=== PATIENT | female | born 2000 | race Caucasian/White ===

== ENCOUNTER 2021-04-05 18:48 | Emergency (ER) | payer SELFPAY ==
--- NOTE | 2021-04-05 19:31 | ER ---
Nurse's Notes [facility] Name: Jael Henry Age: 20 yrs Sex: Female : 2000 Arrival Date: 04/05/2021 Time: 18:51 Bed 12 Private MD: Diagnosis: Rash and other nonspecific skin eruption Presentation: 04/05 19:02 Chief complaint: Patient states: Itchy rash to hands, arms, torso x 1 month, states, " ph I moved into a new apartment and slept on the floor for a few days. I talked to my Aunt and she said it's probably scabies." Rash noted to bilateral hands and arms. Coronavirus screen: At this time, the client does not indicate any symptoms associated with coronavirus-19. Ebola Screen: No symptoms or risks identified at this time. Initial Sepsis Screen: Does the patient meet any 2 criteria? No. Patient's initial sepsis screen is negative. Does the patient have a suspected source of infection? No. Patient's initial sepsis screen is negative. Risk Assessment: Do you want to hurt yourself or someone else? Patient reports no desire to harm self or others. Onset of symptoms was April 05, 2021. 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 - Social history:: Smoking status: unknown. Screenin:05 Abuse screen: Denies threats or abuse. Denies injuries from another. Nutritional ph screening: No deficits noted. Tuberculosis screening: No symptoms or risk factors identified. Fall Risk None identified. Assessment: 19:05 General: Appears in no apparent distress. uncomfortable, Behavior is cooperative, ph appropriate for age. Pain: Denies pain. Neuro: Level of Consciousness is awake, alert, obeys commands, Oriented to person, place, time, situation. Cardiovascular: No deficits noted. Derm: Skin is healthy with good turgor, Skin is pink, warm \\T\\ dry. Rash noted that is itchy, red, on back, buttocks, chest, abdomen, right hand, left hand, right arm and left arm. 19:40 Reassessment: Patient is alert, oriented x 3, equal unlabored respirations, skin bb warm/dry/pink. pt verbalized understanding of and agrees to plan of care discharge instructions given pt ambulated with steady gait to exit. Vital Signs: 19:02 BP 141 / 99; Pulse 89; Resp 18; Temp 97.7; Pulse Ox 100% on R/A; ph ED Course: 18:51 Patient arrived in ED. mr 19:05 Triage completed. ph 19:05 Arm band placed on. ph 19:05 Patient has correct armband on for positive identification. Bed in low position. ph 19:18 Juan Stephens, DRUM STOCK CLERK is PHCP. pm1 19:18 Farhan Lopez MD is Attending Physician. pm1 19:41 No provider procedures requiring assistance completed. Patient did not have IV access bb during this emergency room visit. Administered Medications: No medications were administered Outcome: 19:31 Discharge ordered by MD. pm1 19:42 Discharged to home ambulatory. bb 19:42 Condition: stable 19:42 Discharge instructions given to patient, Instructed on discharge instructions, follow up and referral plans. medication usage, Demonstrated understanding of instructions, follow-up care, medications, Prescriptions given X 1. 19:42 Patient left the ED. bb Signatures: Omaira Lamas mr Marlene Fernandez RN RN bb Courtney Armendariz RN RN Juan Stephens, CLARICE DRUM STOCK CLERK pm1
--- NOTE | 2021-04-05 19:31 | EDPHYS ---
Physician Documentation [facility] Name: Jael Henry Age: 20 yrs Sex: Female : 2000 Arrival Date: 04/05/2021 Time: 18:51 Bed 12 Private MD: ED Physician Farhan Lopez HPI: 04/05 19:30 This 20 yrs old Female presents to ER via Ambulatory with complaints of Rash. pm1 19:30 The patient's rash thought to be caused by possibly from scabies. The rash is located pm1 on the chest, abdomen, right arm, left arm and right leg. The rash can be described as raised. Onset: The symptoms/episode began/occurred 3 day(s) ago. Associated signs and symptoms: Pertinent positives: itching. Severity of symptoms: in the emergency department the symptoms are worse. Treatment given at home: None. The patient has not experienced similar symptoms in the past. The patient has not recently seen a physician. Patient's aunt with similar symptoms and her aunt believes that it is scabies. 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 - Social history:: Smoking status: unknown. ROS: 19:30 Constitutional: Negative for fever, chills, and weight loss, Cardiovascular: Negative pm1 for chest pain, palpitations, and edema, Respiratory: Negative for shortness of breath, cough, wheezing, and pleuritic chest pain, MS/Extremity: Negative for injury and deformity. 19:30 Skin: Positive for rash, of the chest, abdomen, right arm and left arm. 19:30 All other systems are negative. Exam: 19:30 Constitutional: This is a well developed, well nourished patient who is awake, alert, pm1 and in no acute distress. Head/Face: Normocephalic, atraumatic. 19:30 Cardiovascular: Exam negative for acute changes, Rate: normal, Rhythm: regular, Pulses: no pulse deficits are appreciated. 19:30 Respiratory: Exam negative for acute changes, respiratory distress, shortness of breath. 19:30 Skin: Appearance: normal except for affected area, consistent with scabies, on the right arm and left arm and present to webbing of left and right hand. 19:30 Neuro: Exam negative for acute changes, Orientation: is normal, Mentation: is normal, Motor: is normal, moves all fours. Vital Signs: 19:02 BP 141 / 99; Pulse 89; Resp 18; Temp 97.7; Pulse Ox 100% on R/A; ph MDM: 19:18 Patient medically screened. pm1 19:30 Data reviewed: vital signs. Data interpreted: Pulse oximetry: on room air is 100 %. pm1 Interpretation: normal. Counseling: I had a detailed discussion with the patient and/or guardian regarding: the historical points, exam findings, and any diagnostic results supporting the discharge/admit diagnosis, the need for outpatient follow up, a family practitioner, to return to the emergency department if symptoms worsen or persist or if there are any questions or concerns that arise at home. Administered Medications: No medications were administered Disposition: 04/06 19:26 Co-signature as Attending Physician, Farhan Lopez MD I agree with the assessment and kdr plan of care. Disposition Summary: 04/05/21 19:31 Discharge Ordered Location: Home pm1 Problem: new pm1 Symptoms: have improved pm1 Condition: Stable pm1 Diagnosis - Rash and other nonspecific skin eruption pm1 Followup: pm1 - With: Emergency Department - When: As needed - Reason: Worsening of condition Followup: pm1 - With: Private Physician - When: 2 - 3 days - Reason: Recheck today's complaints, Continuance of care, Re-evaluation by your physician Discharge Instructions: - Discharge Summary Sheet pm1 - Rash, Adult pm1 - Scabies, Adult pm1 Forms: - Medication Reconciliation Form pm1 - Thank You Letter pm1 - Antibiotic Education pm1 - Prescription Opioid Use pm1 Prescriptions: - Elimite 5 % Topical Cream - apply 1 application by TOPICAL route one time Wash after 12 hours.; 60 gram; pm1 Refills: 0, Product Selection Permitted Signatures: Farhan Lopez MD MD [facility] Courtney Armendariz RN RN ph Juan Stephens, CLARICE ASSISTANT PROFESSOR OF FORESTRY pm1
[2021-04-05 19:54] VITALS: BP 141/99; TEMP 97.7; O2SAT 100
== END 2021-04-05 19:42 | disposition home or self-care (01) ==
LOC: ER 18:48
DX: R21 Rash and other nonspecific skin eruption (principal)
CPT/HCPCS: 99282

== ENCOUNTER 2022-02-08 10:34 | Emergency (ER) | payer SELFPAY ==
--- NOTE | 2022-02-08 11:04 | ER ---
Nurse's Notes [facility] Name: Jael Henry Age: 21 yrs Sex: Female : 2000 Arrival Date: 02/08/2022 Time: 10:35 Bed 6 Private MD: Diagnosis: Other specified predominantly sexually transmitted diseases Presentation: 02/08 10:45 Chief complaint: Patient states: she was treated for Gonarrhea 2 months ago and mb9 symptoms went away. Pt states vaginal sores popped up 5 days ago, echevarria when urine drips on the sores, has had a sore throat, and white discharge. Pt states a rash started on her hands last night and spread to her arms, stomach, and back this morning. 10:45 Coronavirus screen: Vaccine status: Patient reports being unvaccinated. Ebola Screen: [facility] No symptoms or risks identified at this time. Initial Sepsis Screen: Does the patient meet any 2 criteria? No. Patient's initial sepsis screen is negative. Does the patient have a suspected source of infection? No. Patient's initial sepsis screen is negative. Risk Assessment: Do you want to hurt yourself or someone else? Patient reports no desire to harm self or others. Onset of symptoms was February 03, 2022. 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 - Social history:: Smoking status: Patient denies any tobacco usage or history of. Patient uses alcohol, only on a social basis. Screenin:[address] [facility] ED Fall Risk Assessment (Adult) History of falling in the last 3 months, 9 including since admission No falls in past 3 months (0 pts) Confusion or Disorientation No (0 pts) Intoxicated or Sedated No (0 pts) Impaired Gait No (0 pts) Mobility Assist Device Used No (0 pt) Altered Elimination No (0 pt) Score/Fall Risk Level 0 - 2 = Low Risk Educated pt \T\ family on fall prevention, incl call for assistance when getting out of bed. Abuse screen: Denies threats or abuse. Nutritional screening: No deficits noted. Tuberculosis screening: No symptoms or risk factors identified. Assessment: 11:15 General: Appears uncomfortable, Behavior is anxious. Pain: Denies pain. Neuro: Level of mb9 Consciousness is awake, alert, obeys commands, Oriented to person, place, time, situation, Appropriate for age. Cardiovascular: Rhythm is regular. Respiratory: Airway is patent. GI: No signs and/or symptoms were reported involving the gastrointestinal system. : Urine is cloudy, Reports discharge, white. EENT: No signs and/or symptoms were reported regarding the EENT system. Derm: Rash noted that is red, raised, on back, abdomen, right hand, left hand, right arm and left arm. Musculoskeletal: Range of motion: intact in all extremities. Vital Signs: 10:45 BP 118 / 86; Pulse 118; Resp 18; Temp 98.8; Pulse Ox 100% ; Weight 83.91 kg; Height 5 mb9 ft. 2 in. (157.48 cm); Pain 0/10; 10:45 Body Mass Index 33.84 (83.91 kg, 157.48 cm) mb9 ED Course: 10:35 Patient arrived in ED. as 10:35 Patient placed. mb9 10:35 Arm band placed on. mb9 10:35 Placed in gown. Bed in low position. Call light in reach. Side rails up X 1. mb9 10:36 Omaira Jimenez, VLEASQUEZ is Primary Nurse. mb9 10:37 Lori Deutsch MD is Attending Physician. sp3 10:50 Assist provider with pelvic exam: Patient tolerated well. mb9 10:56 Triage completed. mb9 11:26 Rpr Sent. mb9 11:26 GC (GONORR/CHLAMYDIA) Probe Sent. mb9 11:28 Patient did not have IV access during this emergency room visit. mb9 Administered Medications: 11:15 Drug: Rocephin (cefTRIAXone) 500 mg Route: IM; Site: right gluteus; mb9 Medication: 11:28 VIS not applicable for this client. mb9 Outcome: 11:04 Discharge ordered by . sp3 11:28 Discharged to home ambulatory. mb9 11:28 Condition: stable 11:28 Discharge instructions given to patient, Instructed on discharge instructions, follow up and referral plans. Demonstrated understanding of instructions, follow-up care, medications, Prescriptions given X 1. 11:28 Patient left the ED. mb9 Signatures: Reyna Villegas Setul, MD MD sp3 Omaira Jimenez RN RN mb9 Corrections: (The following items were deleted from the chart) 10:58 10:56 PMHx: None; mbJennifer mb9
--- NOTE | 2022-02-08 11:04 | EDPHYS ---
Physician Documentation [facility] Name: Jael Henry Age: 21 yrs Sex: Female : 2000 Arrival Date: 02/08/2022 Time: 10:35 Bed 6 Private MD: ED Physician Lori Deutsch HPI: 02/08 10:56 This 21 yrs old Female presents to ER via Unassigned with complaints of Vaginal Pain. sp3 10:56 21-year-old female with a history of gonorrhea diagnosed approximately 1 month ago here sp3 in this emergency department presents for recurring symptoms of vaginal thick discharge, rash extending into the internal and external labia and general groin skin area patient also states that she has a new rash that is body wide on her upper extremities and back. Lesions are not painful she is concerned about having a new sexual partner which is different than the one from 1 month ago. She denies any other systemic problems including fever, chest pain, shortness of breath, abdominal pain, nausea, vomiting, diarrhea. LMP was approximately 2 weeks ago. It has not been tested for HIV or other hepatitis markers. She declines those tests at this time.. 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 - Social history:: Smoking status: Patient denies any tobacco usage or history of. Patient uses alcohol, only on a social basis. ROS: 10:58 Constitutional: Negative for fever, chills, and weight loss, Eyes: Negative for injury, sp3 pain, redness, and discharge, ENT: Negative for injury, pain, and discharge, Neck: Negative for injury, pain, and swelling, Cardiovascular: Negative for chest pain, palpitations, and edema, Respiratory: Negative for shortness of breath, cough, wheezing, and pleuritic chest pain, Abdomen/GI: Negative for abdominal pain, nausea, vomiting, diarrhea, and constipation, MS/Extremity: Negative for injury and deformity, Neuro: Negative for headache, weakness, numbness, tingling, and seizure, Psych: Negative for depression, anxiety, suicide ideation, homicidal ideation, and hallucinations, Allergy/Immunology: Negative for hives, rash, and allergies, Endocrine: Negative for neck swelling, polydipsia, polyuria, polyphagia, and marked weight changes. 10:58 All other systems are negative. Exam: 10:58 Constitutional: This is a well developed, well nourished patient who is awake, alert, sp3 and in no acute distress. Head/Face: Normocephalic, atraumatic. Neck: Trachea midline, no thyromegaly or masses palpated, and no cervical lymphadenopathy. Supple, full range of motion without nuchal rigidity, or vertebral point tenderness. No Meningismus. Chest/axilla: Normal chest wall appearance and motion. Nontender with no deformity. No lesions are appreciated. Cardiovascular: Regular rate and rhythm with a normal S1 and S2. No gallops, murmurs, or rubs. Normal PMI, no JVD. No pulse deficits. Respiratory: Lungs have equal breath sounds bilaterally, clear to auscultation and percussion. No rales, rhonchi or wheezes noted. No increased work of breathing, no retractions or nasal flaring. Abdomen/GI: Soft, non-tender, with normal bowel sounds. No distension or tympany. No guarding or rebound. No evidence of tenderness throughout. MS/ Extremity: Pulses equal, no cyanosis. Neurovascular intact. Full, normal range of motion. Neuro: Awake and alert, GCS 15, oriented to person, place, time, and situation. Cranial nerves II-XII grossly intact. Motor strength 5/5 in all extremities. Sensory grossly intact. Cerebellar exam normal. Normal gait. 10:58 : exam demonstrates positive vaginal discharge and generalized rash in the groin area and a painless lesion on the left outer labia. No lower abdominal pain is noted.. 10:58 Skin: Generalized maculopapular rash the upper extremities dorsal surfaces and back with a total of less than 5% body surface area. Patient does not have any pruritus or pain with the rash. She does states she had a mild sore throat several days ago but is resolved. No skin sloughing noted. Nikolsky sign is negative.. Vital Signs: 10:45 BP 118 / 86; Pulse 118; Resp 18; Temp 98.8; Pulse Ox 100% ; Weight 83.91 kg; Height 5 mb9 ft. 2 in. (157.48 cm); Pain 0/10; 10:45 Body Mass Index 33.84 (83.91 kg, 157.48 cm) mb9 MDM: 10:41 Patient medically screened. sp3 11:00 Data reviewed: vital signs, nurses notes, lab test result(s). ED course: We will go sp3 ahead and cover GC and chlamydia with IM Rocephin 500 mg and discharge patient home on 2 weeks of doxycycline. RPR is also been sent. I do not believe clinically patient has herpes. Patient again declined HIV and hepatitis testing despite my attempts to convince her to do so. 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 02/08 10:55 Order name: GC (GONORR/CHLAMYDIA) Probe sp3 02/08 10:55 Order name: Rpr sp3 02/08 10:55 Order name: Urine Dipstick-Ancillary (obtain specimen); Complete Time: 11:10 sp3 02/08 11:13 Order name: Urine Dipstick-Ancillary EDOK 02/08 11:16 Order name: Urine --Ancillary (enter results) 02/08 10:55 Order name: Urine Test (obtain specimen); Complete Time: 11:10 sp3 Administered Medications: 11:15 Drug: Rocephin (cefTRIAXone) 500 mg Route: IM; Site: right gluteus; mb9 Disposition Summary: 02/08/22 11:04 Discharge Ordered Location: Home sp3 Condition: Stable sp3 Diagnosis - Other specified predominantly sexually transmitted diseases sp3 Followup: sp3 - With: Private Physician - When: Upon discharge from the Emergency Department - Reason: Continuance of care Discharge Instructions: - Discharge Summary Sheet sp3 - Preventing Sexually Transmitted Infections, Adult sp3 Forms: - Medication Reconciliation Form sp3 - Thank You Letter sp3 - Antibiotic Education sp3 - Prescription Opioid Use sp3 Prescriptions: - Doxycycline Hyclate 100 mg Oral Tablet - take 1 tablet by ORAL route every 12 hours; 28 tablet; Refills: 0, Product sp3 Selection Permitted Signatures: Dispatcher [employer] Lori Staley MD MD sp3 Omaira Jimenez RN RN mb9 Corrections: (The following items were deleted from the chart) 10:58 10:56 PMHx: None; mb9 mb9
[2022-02-08 11:13] LABS: Urine Blood Negative (Negative); Urine Glucose Negative (Negative); Urine Protein 1+ (Negative); Urine Specific Gravity 1.025 (1.005-1.030)
[2022-02-08] MEDS ORDERED: CEFTRIAXONE 500 MG/VIAL ONE (11:16)
[2022-02-08] MEDS ORDERED: LIDOCAINE 1% MPF 2 ML AMPULE ONE (11:16)
[2022-02-08 11:33] VITALS: BP 118/86; TEMP 98.8; O2SAT 100
[2022-02-08 13:01] LABS: Urine Specific Gravity/Preg 1.025 (1.005-1.030)
[2022-02-08 20:05] LABS: RPR (Rapid Plasma Reagin) NON-REACT (NON-REACT)
== END 2022-02-08 11:28 | disposition home or self-care (01) ==
LOC: ER 10:34
DX: A63.8 Other specified predominantly sexually transmitted diseases (principal)
CPT/HCPCS: 36415; 81003; 81025; 86592; 87490; 87590; 96372; 99284; J0696

== ENCOUNTER 2024-06-14 09:15 | Emergency (ER) | payer SELFPAY ==
--- OUTSIDE RECORDS SUMMARY | 2024-06-14 09:23 | XMS REPORT | Continuity of Care Document ---
Author Name Unknown Address [address] [place] [address] Organization [facility] Address [address] [place] [address] Care Team Providers Care Gift Officer Name Role Phone IZABELA SOLIMAN Primary Care Physician Unav ailable HANNAH NICK Attending Clinician Unavailable Hannah Conde Attending Clinician [phone] Izabela Manrique Attending Clinician + MARLENE ANGELES Attending Clinician UnavailMarlene Bansal CNM Attending Clinician [phone] NABILA VÁZQUEZ Attending Clinician Unavailable NABILA VÁZQUEZ Attending Clinician Unavailable NABILA VÁZQUEZ Attending Clinician Unavailable Nabila Vázquez MD Attending Clinician [phone] Carisa Lakhani MD Attending Clinician [phone] Vandana Espitia MD Attending Clinician [phone] ALEXANDER JANSEN Attending Clinician Unavailable IZABELA SOLIMAN Attending Clinician Unavail able Izabela Manrique Attending Clinician + Ultrasound, Roderick-Mfscarlett Attending Clinician UnavailMarlene Bansal CNM Attending Clinician [phone] LA ROSAS Attending Clinician Unavailable LA ROSAS Attending Clinician Unavailable La Rosas MD Attending Clinician [phone] Lab, JossieRmp Attending Clinician Unavailable Doctor Unassigned, [place] Attending Clinician U steven Gates MD, Marilynn Richard Attending Clinici an Aditya DÍAZ, North Attending Clinician + MINAL AMIN Attending Clinician Unav ailable 2, [facility] Attending Clinician Unavailab monroe Brown MD, Lawson Attending Clinician + FEMI HOGAN Attending Clinician Unavailable FEMI HOGAN Attending Clinician Unavailable 3, [facility] Room Attending Clinician Unavaila Emeka Reyes MD Attending Clinician [phone] EMEKA CHAVIRA Attending Clinician Unavailable EMEKA CHAVIRA Attending Clinician Unavailable Risk, Hsw-Vjafk-Ym/High Attending Clinician Unav ailable Chelle Bobo Attending Clinician CHELLE SINGH Attending Clinician Unavailable NABILA VÁZQUEZ Admitting Clinician Unavailable Nabila Vázquez MD Admitting Clinician [phone] LA ROSAS Admitting Clinician Unavailable La Rosas MD Admitting Clinician [phone] Payers Payer Name Policy Type Policy Number Effective Date Expirati on Date Source [facility] [id number] 2022 00:00:00 [employer] [place] [id number] 2022 00:00:00 Problems Condition Name Condition Details Condition Category Status Onset Date Resolution Date Last Treatment Date Treating Clinician Comments Source Acute blood loss anemia Acute blood loss anemia Disease Active 2023-02 0 00:00: 00 [facility] Indication for care in labor or delivery-I OL Indication for care in labor or delivery-I OL Disease Active 2023-02 0- 00:00: 00 [facility] Morbid obesity with body mass index of 40.0-49.9 Morbid obesity with body mass index of 40.0-49.9 Disease Active 2022-02 0-05 00:00: 00 [facility] Obesity in Obesity in Disease Active 2022-02 0-05 00:00: 00 [facility] Anemia of mother in , antepartum Anemia of mother in , antepartum Disease Active 9-18 00:00: 00 [facility] LGSIL on Pap smear of cervix LGSIL on Pap smear of cervix Disease Active 4-04 00:00: 00 Overview: Formattin g of this note might be different from the original. Will need follow up pap in 1 year: 05/2023 [facility] History of seizure History of seizure Disease Active 05-18 00:00: 00 Overview: Formattin g of this note might be different from the original. Pt reports to age 1 [facility] Anxiety and depression Anxiety and depression Disease Active 05-18 00:00: 00 Overview: Formattin g of this note might be different from the original. Reports history, never been on meds [facility] History of seizure History of seizure Disease Active 05-18 00:00: 00 Overview: Formattin g of this note might be different from the original. Pt reports to age 1 [facility] Perineal laceration , second degree, delivered Perineal laceration , second degree, delivered Disease Resolve d 2023-1 0-29 00:00: 00 2024-01-11 00:00:00 2024-01-11 10:44:23 [facility] Single live Single live Disease Resolve d 2023-1 0-29 00:00: 00 2024-01-11 00:00:00 2024-01-11 10:44:21 [facility] 39 weeks gestation of 39 weeks gestation of Disease Resolve d 2023-1 0-28 00:00: 00 2024-01-11 00:00:00 2024-01-11 10:44:27 [facility] (normal spontaneou s vaginal delivery) (normal spontaneou s vaginal delivery) Disease Resolve d 2023-1 0-28 00:00: 00 2024-01-11 00:00:00 2024-01-11 10:44:24 [facility] Anemia of mother in , antepartum Anemia of mother in , antepartum Disease Resolve d 2023-1 0-15 00:00: 00 2024-01-11 00:00:00 2024-01-11 10:44:28 [facility] Glucose tolerance test abnormal Glucose tolerance test abnormal Disease Resolve d 2023- 3-21 00:00: 00 2024-01-11 00:00:00 2024-01-11 10:44:37 Overview: Formattin g of this note might be different from the original. Passed early 3hr gtt [facility] Multiparit y Multiparit y Disease Resolve d 3-20 00:00: 00 2024-01-11 00:00:00 2024-01-11 10:44:32 [facility] Positive GBS test Positive GBS test Disease Resolve d 9-18 00:00: 00 2024-01-11 00:00:00 2024-01-11 10:44:34 Overview: Formattin g of this note might be different from the original. Address intrapart um [facility] Short interval between pregnancie s affecting , antepartum Short interval between pregnancie s affecting , antepartum Disease Resolve d 3-21 00:00: 00 2023-12-21 00:00:00 2023-12-21 05:19:41 [facility] Supervisio n of high risk , antepartum Supervisio n of high risk , antepartum Disease Resolve d 3-20 00:00: 00 2023-12-21 00:00:00 2023-12-21 05:19:37 [facility] Other general counseling and advice for contracept kailee management Other general counseling and advice for contracept kailee management Disease Resolve d 2022-02 1-27 00:00: 00 2023-05-12 00:00:00 2023-05-12 09:26:39 [facility] Anemia, Anemia, Disease Resolve d 2022-02 0-08 00:00: 00 2023-05-12 00:00:00 2023-05-12 09:27:53 [facility] Routine follow-up Routine follow-up Disease Resolve d 2022-02 0-30 00:00: 00 2023-01-18 00:00:00 2023-01-18 11:57:36 [facility] (spontaneo us vaginal delivery) (spontaneo us vaginal delivery) Disease Resolve d 2022-02 0-07 00:00: 00 2022-12-21 00:00:00 2022-12-21 09:41:08 [facility] Single live Single live Disease Resolve d 2022-02 0-07 00:00: 00 2022-12-21 00:00:00 2022-12-21 09:41:07 [facility] Obstetrica l laceration Obstetrica l laceration Disease Resolve d 2022-02 0-07 00:00: 00 2022-12-21 00:00:00 2022-12-21 09:41:18 [facility] 39 weeks gestation of 39 weeks gestation of Disease Resolve d 2022-02 0-05 00:00: 00 2022-12-21 00:00:00 2022-12-21 09:41:10 [facility] Anemia of mother in , antepartum Anemia of mother in , antepartum Disease Resolve d 0 9-18 00:00: 00 2022-12-21 00:00:00 2022-12-21 09:41:12 [facility] Obesity in Obesity in Disease Resolve d 6-29 00:00: 00 2022-12-21 00:00:00 2022-12-21 09:41:14 [facility] GBS (group B streptococ cus) UTI complicati ng GBS (group B streptococ cus) UTI complicati ng Disease Resolve d 0 3-29 00:00: 00 2022-12-21 00:00:00 2022-12-21 09:41:19 Overview: Formattin g of this note might be different from the original. neg conrado [facility] Supervisio n of high-risk Supervisio n of high-risk Disease Resolve d 2022-0 3-27 00:00: 00 2022-12-21 00:00:00 2022-12-21 09:41:17 [facility] Polyhydram nios, antepartum complicati on Polyhydram nios, antepartum complicati on Disease Resolve d 8-04 00:00: 00 2022-11-26 00:00:00 2022-11-26 16:46:59 Overview: Formattin g of this note might be different from the original. consisten t with mild polyhydra mnios. See last usg report [facility] Chlamydia infection during Chlamydia infection during Disease Resolve d 3-29 00:00: 00 2022-11-26 00:00:00 2022-11-26 16:47:00 [facility] Family history of brain aneurysm Family history of brain aneurysm Disease Resolve d 3-27 00:00: 00 2022-11-26 00:00:00 2022-11-26 16:47:08 Overview: Formattin g of this note might be different from the original. Reports his of brain aneurysm at , resolved [facility] Allergies, Adverse Reactions, Alerts Allergy Name Allergy Type Status Severity Reaction(s) Onset Date Inactive Date Treating Clinician Comments Source NO KNOWN ALLERGIE S Drug Class Active [facility] Social History Social Habit Start Date Stop Date Quantity Comments Source ASSERTION 2023-04-05 00:00:00 [facility] Alcoholic beverage intake 2024-02-01 00:00:00 2024-02-01 00:00:00 Ex-drinker (finding) [facility] Alcohol intake 2023-06-09 00:00:00 2023-06-09 00:00:00 Ex-drinker (finding) [facility] History of Social function 2023-05-12 00:00:00 2023-05-12 00:00:00 [facility] Exposure to SARS-CoV-2 (event) 2022-06-15 00:00:00 2022-06-25 09:01:[address] [facility] Tobacco use and exposure 2022-05-18 00:00:00 2022-05-18 00:00:00 Smokeless tobacco non-user [facility] Sex assigned at 2000 00:00:00 2000 00:00:00 [facility] Smoking Status Start Date Stop Date Source Tobacco smoking consumption unknown [facility] Never smoked tobacco [facility] Medications Ordered Medication Name Filled Medication Name Start Date Stop Date Current Medication? Ordering Clinician Indication Dosage Frequency Signature (SIG) Comments Components Source metroNIDAZO LE 500 mg tablet 2023-02 00:00: 00 Yes [id number] 500mg Take 1 tablet by mouth every 12 (twelve) hours. [facility] norgestimat e-ethinyl estradioL 0.25-35 mg-mcg per tablet 2023-02 00:00: 00 Yes [id number] 1{tbl} Take 1 tablet by mouth in the morning. [facility] Nitrofurant oin&Nit. Macrocryst (MACROBID) 100 mg capsule 2023-02 00:00: 00 01-24 05:59 :00 No [id number] 100mg Take 1 capsule by mouth in the morning and 1 capsule in the evening. Do all this for 10 days. [facility] jts130-ccki fum-folic () 27 mg iron- 1 mg folic tablet 2023-02 00:00: 00 Yes [id number] 1{tbl} Take 1 tablet by mouth in the morning. [facility] docusate 100 mg capsule 2023-02 00:00: 00 Yes [id number] 200mg Take 2 capsules by mouth once daily as needed for Constipati on. [facility] ferrous sulfate 325 mg (65 mg iron) tablet 2023-02 00:00: 00 Yes [id number] 325mg Take 1 tablet by mouth in the morning. [facility] ibuprofen 800 mg tablet 2023-02 00:00: 00 Yes [id number] 800mg Take 1 tablet by mouth every 8 (eight) hours as needed (pain). Take with food or milk. [facility] acetaminoph en (TYLENOL) 160 mg/5 mL oral liquid 650 mg 2023-02 14:48: 42 12-21 20:27 :50 No 650mg 650 mg, Oral, Q4HPRN, Starting on Wed12/21/23 at 0948, Until Wed12/22/23 at 1527, Routine, Pain (scale 1-3) [facility] ibuprofen (ADVIL CHILDREN'S) 100 mg/5 mL oral suspension 600 mg 2023-02 14:47: 43 12-21 20:27 :50 No 600mg 600 mg, Oral, Q6HPRN, Starting on Wed12/21/23 at 0947, Until Wed12/22/23 at 1527, Routine, Pain (scale 4-6) [facility] rho(D) immune globulin (RHOPHYLAC) injection 300 mcg 2023-02 13:47: 12 12-21 20:27 :49 No 300ug [facility] human papillomav vac,9-ksenia(P F) (GARDASIL-9 ) syringe 0.5 mL 2023-02 13:47: 05 12-21 20:27 :50 No .5mL [facility] HYDROcodone -acetaminop hen (NORCO 5) tablet 1 tablet 2023-02 13:47: 05 12-21 20:27 :50 No 1{tbl} [facility] diphenhydrA MINE (BENADRYL) tablet 25 mg 2023-02 13:47: 05 12-21 20:27 :50 No 25mg [facility] ondansetron (ZOFRAN (PF)) injection 4 mg 2023-02 13:47: 05 12-21 20:27 :50 No 4mg [facility] simethicone (GAS RELIEF (SIMETHICON E)) chewable tablet 160 mg 2023-02 13:47: 05 12-21 20:27 :49 No 160mg [facility] docusate (COLACE) capsule 200 mg 2023-02 13:47: 05 12-21 20:27 :49 No 200mg [facility] magnesium hydroxide (MILK OF MAGNESIA) 400 mg/5 mL suspension 30 mL 2023-02 13:47: 05 12-21 20:27 :49 No 30mL [facility] benzocaine- menthol (DERMOPLAST ) 20-0.5 % topical spray 2023-02 13:47: 05 12-21 20:27 :49 No Topical, PRN, Starting on Wed12/21/23 at 0847, Until Wed12/22/23 at 1527, Routine, Perineum discomfort [facility] ropivacaine 0.2 % (NAROPIN (PF)) epidural infusion 2023-02 23:54: 00 12-20 12:22 :37 No Epidural, CONTINUOUS PRN, Starting on Wed12/20/23 at 1854, Until Wed12/21/23 at 0722, Routine, Intra-op [facility] lidocaine-e pinephrine (XYLOCAINE W/EPINEPHRI NE) 1.5 %-1:200,000 injection 2023-02 23:52: 00 12-20 12:22 :37 No Epidural, ONCE INTRA PROCEDURE, Starting on Wed12/20/23 at 1852, Until Wed12/21/23 at 0722, Routine, Intra-op [facility] D5W-LR IV infusion 1,000 mL 2023-02 20:25: 11 12-20 13:47 :11 No 1000mL at 1-75 mL/hr, IV Infusion, TITRATE, Starting on Wed12/20/23 at 1525, Until Wed12/21/23 at 0847, Routine [facility] sodium citrate-cit star acid (BICITRA) 500-334 mg/5 mL solution 30 mL 2023-02 20:25: 11 12-19 23:36 :00 No 30mL 30 mL, Oral, PRE-PROCED URE ONCE, 1 dose, Starting on Wed12/20/23 at 1525, Until Wed12/20/23 at 1836, Routine, Surgery/Pr ocedure [facility] ferrous sulfate 325 mg (65 mg iron) tablet 8-06 00:00: 00 12-21 00:00 :00 No [id number] 325mg Take 1 tablet by mouth in the morning and 1 tablet in the evening. [facility] ascorbic acid, vitamin C, 500 mg tablet 8-06 00:00: 00 12-21 00:00 :00 No [id number] 500mg Take 1 tablet by mouth in the morning and 1 tablet at noon and 1 tablet in the evening. [facility] act61-edfl- folic acid 29 mg iron- 1 mg per tablet 3-20 00:00: 00 12-21 00:00 :00 No [id number] 1{tbl} Take 1 tablet by mouth in the morning. [facility] ibuprofen 600 mg tablet 2022-02 0-08 00:00: 00 01-18 00:00 :00 No [id number] 600mg Take 1 tablet by mouth every 6 (six) hours as needed (Pain). Take with food or milk. [facility] Iron Fum & P-FA-Vit B & C No.9 (INTEGRA PLUS) 125 mg iron- 1 mg Cap 2022-02 0-08 00:00: 00 01-18 00:00 :00 No [id number] 1{capsu le} Take 1 capsule by mouth in the morning. [facility] simethicone (GAS RELIEF (SIMETHICON E)) chewable tablet 160 mg 2022-02 0-07 14:00: 00 Yes 160mg 160 mg, Oral, PC+HS, First dose on Wed11/28/22 at 0900, Until Discontinu ed, Routine [facility] ibuprofen (IBU) tablet 600 mg 2022-02 0-07 11:00: 00 12-01 10:59 :00 No 600mg 600 mg, Oral, Q6H, 12 doses, First dose on Wed11/28/22 at 0600, Last dose on Wed12/01/22 at 0000, Routine [facility] acetaminoph en (TYLENOL) tablet 650 mg 2022-02 0-07 07:15: 00 12-01 04:59 :00 No 650mg 650 mg, Oral, Q6H, 12 doses, First dose on 11/28/22 at 0215, Last dose on 11/30/22 at 1800, Routine [facility] rho(D) immune globulin (RHOGAM) syringe 300 mcg 2022-02 0 07:06: 53 Yes 300ug 300 mcg, Intramuscu lar, ONCE, For 1 dose, Conditiona l, Routine [facility] diphenhydrA MINE (BENADRYL) tablet 25 mg 2022-02 0 07:06: 51 Yes 25mg 25 mg, Oral, Q6HPRN, Starting on 11/28/22 at 0206, Until Discontinu ed, Routine, Sleep, Itching [facility] ondansetron (ZOFRAN (PF)) injection 4 mg 2022-02 0 07:06: 51 Yes 4mg 4 mg, Slow IV Push, Q8HPRN, Starting on 11/28/22 at 0206, Until Discontinu ed, Routine, Nausea and Vomiting (N/V) [facility] docusate (COLACE) capsule 200 mg 2022-02 0 07:06: 51 Yes 200mg 200 mg, Oral, QDAILYPRN, Starting on 11/28/22 at 0206, Until Discontinu ed, Routine, Constipati on [facility] magnesium hydroxide (MILK OF MAGNESIA) 400 mg/5 mL suspension 30 mL 2022-02 0 07:06: 51 Yes 30mL 30 mL, Oral, QDAILYPRN, Starting on 11/28/22 at 0206, Until Discontinu ed, Routine, Constipati on [facility] benzocaine- menthol (DERMOPLAST ) 20-0.5 % topical spray 2022-02 0 07:06: 50 Yes Topical, PRN, Starting on 11/28/22 at 0206, Until Discontinu ed, Routine, Perineum discomfort [facility] human papillomav vac,9-ksenia(P F) (GARDASIL-9 ) syringe 0.5 mL 2022-02 0 07:06: 50 Yes .5mL 0.5 mL, Intramuscu lar, ONCE-PRIOR TO DISCHARGE, 1 dose, Starting on 11/28/22 at 0206, Until Discontinu ed, Routine, Give vaccine prior to discharge [facility] ondansetron (ZOFRAN (PF)) injection 4 mg 2022-02 0 02:45: 00 11-28 01:57 :00 No 4mg 4 mg, Slow IV Push, ONCE, On 11/27/22 at 2145, For 1 dose
Do ses of ondansetro n 16 mg and above need to be administer ed via IV piggyback. For Dose >=24mg ECG monitoring is advisable.
[facility] lidocaine-e pinephrine (XYLOCAINE W/EPINEPHRI NE) 1.5 %-1:200,000 injection 2022-02 0 17:25: 00 Yes Intraderma l, ONCE INTRA PROCEDURE, Starting on 11/27/22 at 1225, Until Discontinu ed, Routine, Intra-op [facility] ropivacaine 0.2 % (NAROPIN (PF)) epidural infusion 2022-02 0 17:25: 00 Yes Epidural, CONTINUOUS PRN, Starting on 11/27/22 at 1225, Until Discontinu ed, Routine, Intra-op [facility] oxytocin (PITOCIN) 30 units in NS 500 mL IV infusion 2022-02 0 12:43: 52 11-28 07:07 :00 No 2mU/min at 2-40 mL/hr, IV Infusion, TITRATE, Starting on Wed11/27/22 at 0743, Until 11/28/22 at 0207, LUCRETIA [facility] sodium citrate-cit star acid (BICITRA) 500-334 mg/5 mL solution 30 mL 2022-02 0-05 21:48: 07 11-27 17:06 :00 No 30mL 30 mL, Oral, PRE-PROCED URE ONCE, 1 dose, Starting on Belle 11/26/22 at 1648, Until Discontinu ed, Routine, Surgery/Pr ocedure [facility] lactated ringers IV infusion 500 mL 2022-02 0-05 21:48: 06 11-28 07:07 :09 No 500mL at 999 mL/hr, 500 mL, IV Infusion, PRN - SEE INSTRUCTIO NS, Starting on Belle 11/26/22 at 1648, Until 11/28/22 at 0207, Routine [facility] D5W-LR IV infusion 1,000 mL 2022-02 0-05 21:48: 06 11-28 07:07 :09 No 1000mL at 1-125 mL/hr, IV Infusion, TITRATE, Starting on Belle 11/26/22 at 1648, Until 11/28/22 at 0207, Routine [facility] ascorbic acid, vitamin C, 500 mg tablet 918 00:00: 00 11-29 00:00 :00 No [id number] 500mg Take 1 tablet by mouth in the morning and 1 tablet at noon and 1 tablet in the evening. [facility] PNV 67-iron ps-folate no.1-dha (VITAFOL ULTRA) 29 mg iron- 1 mg-200 mg Cap 4-13 00:00: 00 07-05 04:59 :00 No [id number] 1{tbl} Take 1 tablet by mouth in the morning for 30 days. [facility] azithromyci n 500 mg tablet 05-20 00:00: 00 11-29 00:00 :00 No TAKE 2 TABLETS BY MOUTH 1 TIME NOW FOR 1 DOSE [facility] ampicillin 500 mg capsule 05-20 00:00: 00 05-31 04:59 :00 No [id number] 500mg Take 1 capsule by mouth 4 (four) times daily for 10 days. [facility] Immunizations Ordered Immunization Name Filled Immunization Name Date Status Comments Source TDAP 2023-10-11 00:00:[address] [facility] TDAP 2023-10-11 00:00:[address] [facility] TDAP 2022-09-10 00:00:[address] [facility] TDAP 2022-09-10 00:00:[address] [facility] TDAP 2022-09-10 00:00:[address] [facility] TDAP 2022-09-10 00:00:[address] [facility] TDAP 2022-09-10 00:00:[address] [facility] TDAP 2022-09-10 00:00:[address] [facility] TDAP 2022-09-10 00:00:[address] [facility] TDAP 2022-09-10 00:00:[address] [facility] TDAP 2022-09-10 00:00:[address] [facility] TDAP 2022-09-10 00:00:[address] [facility] TDAP 2022-09-10 00:00:[address] [facility] TDAP 2022-09-10 00:00:[address] [facility] TDAP 2022-09-10 00:00:[address] [facility] TDAP 2022-09-10 00:00:[address] [facility] TDAP 2022-09-10 00:00:[address] [facility] TDAP Unknown Completed [facility] TDAP Unknown Completed [facility] TDAP Unknown Completed [facility] TDAP Unknown Completed [facility] TDAP Unknown [facility] TDAP Unknown [facility] TDAP Unknown [facility] TDAP Unknown [address] TDAP Unknown [address] TDAP Unknown [facility] TDAP Unknown [facility] TDAP Unknown [facility] TDAP Unknown Com[facility] TDAP Unknown [facility] TDAP Unknown Com[facility] TDAP Unknown [facility] TDAP Unknown [facility] TDAP Unknown Com[facility] TDAP Unknown Com[facility] TDAP Unknown Com[facility] TDAP Unknown Com[facility] TDAP Unknown Com[facility] TDAP Unknown Completed [facility] TDAP Unknown Completed [facility] TDAP Unknown Completed [facility] TDAP Unknown Completed [facility] TDAP Unknown Completed [facility] Vital Signs Vital Name Observation Time Observation Value Comments S ource Systolic blood pressure 2024-02-01 16:26:00 128 mm[Hg] [facility] Diastolic blood pressure 2024-02-01 16:26:00 75 mm[Hg] [facility] Heart rate 2024-02-01 16:26:00 108 /min [facility] Body temperature 2024-02-01 16:26:[address] [facility] Respiratory rate 2024-02-01 16:26:00 18 /min [facility] Body height 2024-02-01 16:26:00 152.4 cm [facility] Body weight 2024-02-01 16:26:00 106.686 kg [facility] BMI 2024-02-01 16:26:00 45.93 kg/m2 [facility] Systolic blood pressure 2024-01-11 16:40:00 131 mm[Hg] [facility] Diastolic blood pressure 2024-01-11 16:40:00 86 mm[Hg] [facility] Heart rate 2024-01-11 16:40:00 112 /min [facility] Body temperature 2024-01-11 16:40:[address] [facility] Respiratory rate 2024-01-11 16:40:00 18 /min [facility] Body height 2024-01-11 16:40:00 152.4 cm [facility] Body weight 2024-01-11 16:40:00 106.85 kg [facility] BMI 2024-01-11 16:40:00 46.01 kg/m2 [facility] Systolic blood pressure 2023-12-22 13:49:00 98 mm[Hg] [facility] Diastolic blood pressure 2023-12-22 13:49:00 62 mm[Hg] [facility] Heart rate 2023-12-22 13:49:00 99 /min [facility] Body temperature 2023-12-22 13:49:[address] [facility] Respiratory rate 2023-12-22 13:49:00 18 /min [facility] Oxygen saturation in Arterial blood by Pulse oximetry 2023-12-22 13:49:00 100 /min [facility] Body weight 2023-12-20 20:24:00 116.121 kg [facility] BMI 2023-12-20 20:24:00 48.40 kg/m2 [facility] Body height 2023-12-20 18:30:00 154.9 cm [facility] Systolic blood pressure 2023-12-15 16:04:00 123 mm[Hg] [facility] Diastolic blood pressure 2023-12-15 16:04:00 82 mm[Hg] [facility] Heart rate 2023-12-15 16:04:00 110 /min [facility] Body temperature 2023-12-15 16:04:[address] [facility] Respiratory rate 2023-12-15 16:04:00 17 /min [facility] Body height 2023-12-15 16:04:00 154.9 cm [facility] Body weight 2023-12-15 16:04:00 114.896 kg [facility] BMI 2023-12-15 16:04:00 47.86 kg/m2 [facility] Systolic blood pressure 2023-12-08 14:50:00 119 mm[Hg] [facility] Diastolic blood pressure 2023-12-08 14:50:00 82 mm[Hg] [facility] Heart rate 2023-12-08 14:50:00 109 /min [facility] Body temperature 2023-12-08 14:50:[address] [facility] Respiratory rate 2023-12-08 14:50:00 18 /min [facility] Body height 2023-12-08 14:50:00 154.9 cm [facility] Body weight 2023-12-08 14:50:00 114.443 kg [facility] BMI 2023-12-08 14:50:00 47.67 kg/m2 [facility] Systolic blood pressure 2023-12-02 15:32:00 117 mm[Hg] [facility] Diastolic blood pressure 2023-12-02 15:32:00 71 mm[Hg] [facility] Heart rate 2023-12-02 15:32:00 106 /min [facility] Body temperature 2023-12-02 15:32:[address] [facility] Respiratory rate 2023-12-02 15:32:00 18 /min [facility] Body height 2023-12-02 15:32:00 154.9 cm [facility] 2023-12-02 15:32:00 113.49 kg [facility] BMI 2023-12-02 15:32:00 47.27 kg/m2 [facility] Systolic blood pressure 2023-11-25 15:47:00 113 mm[Hg] [facility] Diastolic blood pressure 2023-11-25 15:47:00 61 mm[Hg] [facility] Heart rate 2023-11-25 15:47:00 112 /min [facility] Body temperature 2023-11-25 15:47:[address] [facility] Respiratory rate 2023-11-25 15:47:00 17 /min [facility] Body height 2023-11-25 15:47:00 154.9 cm [facility] Body weight 2023-11-25 15:47:00 113.127 kg [facility] BMI 2023-11-25 15:47:00 47.12 kg/m2 [facility] Systolic blood pressure 2023-11-10 16:08:00 124 mm[Hg] [facility] Diastolic blood pressure 2023-11-10 16:08:00 76 mm[Hg] [facility] Heart rate 2023-11-10 16:08:00 111 /min [facility] Body temperature 2023-11-10 16:08:[address] [facility] Respiratory rate 2023-11-10 16:08:00 19 /min [facility] Body height 2023-11-10 16:08:00 154.9 cm [facility] Body weight 2023-11-10 16:08:00 113.263 kg [facility] BMI 2023-11-10 16:08:00 47.18 kg/m2 [facility] Systolic blood pressure 2023-10-27 15:31:00 126 mm[Hg] [facility] Diastolic blood pressure 2023-10-27 15:31:00 79 mm[Hg] [facility] Heart rate 2023-10-27 15:31:00 118 /min [facility] Body temperature 2023-10-27 15:31:[address] [facility] Respiratory rate 2023-10-27 15:31:00 19 /min [facility] Body height 2023-10-27 15:31:00 154.9 cm [facility] Body weight 2023-10-27 15:31:00 111.948 kg [facility] BMI 2023-10-27 15:31:00 46.63 kg/m2 [facility] Systolic blood pressure 2023-10-11 15:59:00 105 mm[Hg] [facility] Diastolic blood pressure 2023-10-11 15:59:00 64 mm[Hg] [facility] Heart rate 2023-10-11 15:59:00 100 /min [facility] Body temperature 2023-10-11 15:59:[address] [facility] Respiratory rate 2023-10-11 15:59:00 18 /min [facility] Body height 2023-10-11 15:59:00 154.9 cm [facility] Body weight 2023-10-11 15:59:00 111.766 kg [facility] BMI 2023-10-11 15:59:00 46.56 kg/m2 [facility] Systolic blood pressure 2023-09-27 12:47:00 109 mm[Hg] [facility] Diastolic blood pressure 2023-09-27 12:47:00 68 mm[Hg] [facility] Heart rate 2023-09-27 12:47:00 99 /min [facility] Body temperature 2023-09-27 12:47:[address] [facility] Respiratory rate 2023-09-27 12:47:00 18 /min [facility] Body height 2023-09-27 12:47:00 154.9 cm [facility] Body weight 2023-09-27 12:47:00 110.904 kg [facility] BMI 2023-09-27 12:47:00 46.20 kg/m2 [facility] Systolic blood pressure 2023-09-13 21:07:00 134 mm[Hg] [facility] Diastolic blood pressure 2023-09-13 21:07:00 74 mm[Hg] [facility] Heart rate 2023-09-13 21:07:00 104 [facility] Body temperature 2023-09-13 21:07:[address] [facility] Respiratory rate 2023-09-13 21:07:00 18 /min [facility] Body height 2023-09-13 21:07:00 154.9 cm [facility] Body weight 2023-09-13 21:07:00 110.315 kg [facility] BMI 2023-09-13 21:07:00 45.95 kg/m2 [facility] Systolic blood pressure 2023-08-04 13:06:00 115 mm[Hg] [facility] Diastolic blood pressure 2023-08-04 13:06:00 64 mm[Hg] [facility] Heart rate 2023-08-04 13:06:00 94 /min [facility] Body temperature 2023-08-04 13:06:[address] [facility] Respiratory rate 2023-08-04 13:06:00 18 /min [facility] Body height 2023-08-04 13:06:00 154.9 cm [facility] Body weight 2023-08-04 13:06:00 108.092 kg [facility] BMI 2023-08-04 13:06:00 45.03 kg/m2 [facility] Systolic blood pressure 2023 13:11:00 133 mm[Hg] [facility] Diastolic blood pressure 2023 13:11:00 73 mm[Hg] [facility] Heart rate 2023 13:11:00 101 /min [facility] Body temperature 2023 13:11:[address] [facility] Respiratory rate 2023 13:11:00 20 /min [facility] Body height 2023 13:11:00 154.9 cm [facility] Body weight 2023 13:11:00 105.371 kg [facility] BMI 2023 13:11:00 43.89 kg/m2 [facility] Oxygen saturation in Arterial blood by Pulse oximetry 2023 13:11:00 99 /min [facility] Systolic blood pressure 2023-06-09 13:19:00 113 mm[Hg] [facility] Diastolic blood pressure 2023-06-09 13:19:00 66 mm[Hg] [facility] Heart rate 2023-06-09 13:19:00 98 /min [facility] Body temperature 2023-06-09 13:19:[address] [facility] Respiratory rate 2023-06-09 13:19:00 18 /min [facility] Body height 2023-06-09 13:19:00 154.9 cm [facility] Body weight 2023-06-09 13:19:00 105.053 kg [facility] BMI 2023-06-09 13:19:00 43.76 kg/m2 [facility] Systolic blood pressure 2023-05-12 13:42:00 126 mm[Hg] [facility] Diastolic blood pressure 2023-05-12 13:42:00 74 mm[Hg] [facility] Heart rate 2023-05-12 13:42:00 99 /min [facility] Body temperature 2023-05-12 13:42:[address] [facility] Respiratory rate 2023-05-12 13:42:00 18 /min [facility] Body height 2023-05-12 13:42:00 154.9 cm [facility] Body weight 2023-05-12 13:42:00 107.321 kg [facility] BMI 2023-05-12 13:42:00 44.71 kg/m2 [facility] Systolic blood pressure 2023-01-18 16:12:00 119 mm[Hg] [facility] Diastolic blood pressure 2023-01-18 16:12:00 76 mm[Hg] [facility] Heart rate 2023-01-18 16:12:00 89 /min [facility] Body temperature 2023-01-18 16:12:[address] [facility] Respiratory rate 2023-01-18 16:12:00 18 /min [facility] Body height 2023-01-18 16:12:00 154.9 cm [facility] Body weight 2023-01-18 16:12:00 100.517 kg [facility] BMI 2023-01-18 16:12:00 41.87 kg/m2 [facility] Systolic blood pressure 2022-12-21 14:10:00 111 mm[Hg] [facility] Diastolic blood pressure 2022-12-21 14:10:00 72 mm[Hg] [facility] Heart rate 2022-12-21 14:09:00 94 /min [facility] Body temperature 2022-12-21 14:09:[address] [facility] Body height 2022-12-21 14:09:00 156.2 cm [facility] Body weight 2022-12-21 14:09:00 99.156 kg [facility] BMI 2022-12-21 14:09:00 40.64 kg/m2 [facility] Oxygen saturation in Arterial blood by Pulse oximetry 2022-12-21 14:09:00 100 /min [facility] Systolic blood pressure 2022-11-29 13:29:00 106 mm[Hg] [facility] Diastolic blood pressure 2022-11-29 13:29:00 62 mm[Hg] [facility] Heart rate 2022-11-29 13:29:00 88 /min [facility] Body temperature 2022-11-29 13:29:[address] [facility] Respiratory rate 2022-11-29 13:29:00 18 /min [facility] Oxygen saturation in Arterial blood by Pulse oximetry 2022-11-29 13:29:00 98 /min [facility] Body weight 2022-11-26 21:55:00 109.5 kg [facility] BMI 2022-11-26 21:55:00 44.14 kg/m2 [facility] Body height 2022-11-26 21:30:00 157.5 cm [facility] Systolic blood pressure 2022-11-23 19:08:00 127 mm[Hg] [facility] Diastolic blood pressure 2022-11-23 19:08:00 75 mm[Hg] [facility] Heart rate 2022-11-23 19:08:00 104 /min [facility] Body temperature 2022-11-23 19:08:[address] [facility] Respiratory rate 2022-11-23 19:08:00 18 /min [facility] Body height 2022-11-23 19:08:00 157.5 cm [facility] Body weight 2022-11-23 19:08:00 110.768 kg [facility] BMI 2022-11-23 19:08:00 44.66 kg/m2 [facility] Systolic blood pressure 2022-11-19 16:00:00 125 mm[Hg] [facility] Diastolic blood pressure 2022-11-19 16:00:00 77 mm[Hg] [facility] Heart rate 2022-11-19 16:00:00 96 /min [facility] Body temperature 2022-11-19 16:00:[address] [facility] Respiratory rate 2022-11-19 16:00:00 18 /min [facility] Body height 2022-11-19 16:00:00 157.5 cm [facility] Body weight 2022-11-19 16:00:00 111.222 kg [facility] BMI 2022-11-19 16:00:00 44.85 kg/m2 [facility] Systolic blood pressure 2022-11-12 20:36:00 129 mm[Hg] [facility] Diastolic blood pressure 2022-11-12 20:36:00 81 mm[Hg] [facility] Heart rate 2022-11-12 20:36:00 123 /min [facility] Body temperature 2022-11-12 20:36:[address] [facility] Respiratory rate 2022-11-12 20:36:00 18 /min [facility] Body height 2022-11-12 20:36:00 157.5 cm [facility] Body weight 2022-11-12 20:36:00 112.401 kg [facility] BMI 2022-11-12 20:36:00 45.32 kg/m2 [facility] Systolic blood pressure 2022-11-06 17:55:00 130 mm[Hg] [facility] Diastolic blood pressure 2022-11-06 17:55:00 79 mm[Hg] [facility] Heart rate 2022-11-06 17:55:00 105 /min [facility] Body temperature 2022-11-06 17:55:[address] [facility] Respiratory rate 2022-11-06 17:55:00 19 /min [facility] Body height 2022-11-06 17:55:00 157.5 cm [facility] Body weight 2022-11-06 17:55:00 108.41 kg [facility] BMI 2022-11-06 17:55:00 43.71 kg/m2 [facility] Systolic blood pressure 2022-10-22 16:08:00 115 mm[Hg] [facility] Diastolic blood pressure 2022-10-22 16:08:00 74 mm[Hg] [facility] Heart rate 2022-10-22 16:08:00 108 /min [facility] 2022-10-22 16:08:[address] [facility] Respiratory rate 2022-10-22 16:08:00 18 /min [facility] Body height 2022-10-22 16:08:00 157.5 cm [facility] Body weight 2022-10-22 16:08:00 105.597 kg [facility] BMI 2022-10-22 16:08:00 42.58 kg/m2 [facility] Systolic blood pressure 2022-10-09 20:04:00 115 mm[Hg] [facility] Diastolic blood pressure 2022-10-09 20:04:00 72 mm[Hg] [facility] Heart rate 2022-10-09 20:04:00 107 /min [facility] Body temperature 2022-10-09 20:04:[address] [facility] Respiratory rate 2022-10-09 20:04:00 20 /min [facility] Body height 2022-10-09 20:04:00 157.5 cm [facility] Body weight 2022-10-09 20:04:00 103.828 kg [facility] BMI 2022-10-09 20:04:00 41.87 kg/m2 [facility] Systolic blood pressure 2022-09-25 14:22:00 125 mm[Hg] [facility] Diastolic blood pressure 2022-09-25 14:22:00 79 mm[Hg] [facility] Heart rate 2022-09-25 14:22:00 104 /min [facility] Body temperature 2022-09-25 14:22:[address] [facility] Respiratory rate 2022-09-25 14:22:00 18 /min [facility] Body height 2022-09-25 14:22:00 157.5 cm [facility] Body weight 2022-09-25 14:22:00 104.826 kg [facility] BMI 2022-09-25 14:22:00 42.27 kg/m2 [facility] Systolic blood pressure 2022-09-10 15:42:00 134 mm[Hg] [facility] Diastolic blood pressure 2022-09-10 15:42:00 76 mm[Hg] [facility] Heart rate 2022-09-10 15:42:00 106 /min [facility] Body temperature 2022-09-10 15:42:[address] [facility] Respiratory rate 2022-09-10 15:42:00 20 /min [facility] Body height 2022-09-10 15:42:00 157.5 cm [facility] Body weight 2022-09-10 15:42:00 103.874 kg [facility] BMI 2022-09-10 15:42:00 41.88 kg/m2 [facility] Systolic blood pressure 2022-08-20 14:20:00 110 mm[Hg] [facility] Diastolic blood pressure 2022-08-20 14:20:00 74 mm[Hg] [facility] Heart rate 2022-08-20 14:20:00 97 /min [facility] Body temperature 2022-08-20 14:20:[address] [facility] Respiratory rate 2022-08-20 14:20:00 18 /min [facility] Body height 2022-08-20 14:20:00 157.5 cm [facility] Body weight 2022-08-20 14:20:00 100.562 kg [facility] BMI 2022-08-20 14:20:00 40.55 kg/m2 [facility] Systolic blood pressure 2022-07-23 14:22:00 105 mm[Hg] [facility] Diastolic blood pressure 2022-07-23 14:22:00 73 mm[Hg] [facility] Heart rate 2022-07-23 14:22:00 91 /min [facility] Body temperature 2022-07-23 14:22:[address] [facility] Respiratory rate 2022-07-23 14:22:00 18 /min [facility] Body height 2022-07-23 14:22:00 157.5 cm [facility] Body weight 2022-07-23 14:22:00 96.843 kg [facility] BMI 2022-07-23 14:22:00 39.05 kg/m2 [facility] Systolic blood pressure 2022-06-25 14:02:00 129 mm[Hg] [facility] Diastolic blood pressure 2022-06-25 14:02:00 77 mm[Hg] [facility] Heart rate 2022-06-25 14:02:00 105 /min [facility] Body temperature 2022-06-25 14:02:[address] [facility] Respiratory rate 2022-06-25 14:02:00 18 /min [facility] Body height 2022-06-25 14:02:00 157.5 cm [facility] Body weight 2022-06-25 14:02:00 96.843 kg [facility] BMI 2022-06-25 14:02:00 39.05 kg/m2 [facility] Systolic blood pressure 2022-06-04 14:40:00 106 mm[Hg] [facility] Diastolic blood pressure 2022-06-04 14:40:00 70 mm[Hg] [facility] Heart rate 2022-06-04 14:40:00 88 /min [facility] Body temperature 2022-06-04 14:40:[address] [facility] Respiratory rate 2022-06-04 14:40:00 18 /min [facility] Body height 2022-06-04 14:40:00 156.2 cm [facility] Body weight 2022-06-04 14:40:00 95.737 kg [facility] BMI 2022-06-04 14:40:00 39.23 kg/m2 [facility] Systolic blood pressure 2022-05-18 13:42:00 118 mm[Hg] [facility] Diastolic blood pressure 2022-05-18 13:42:00 73 mm[Hg] [facility] Heart rate 2022-05-18 13:42:00 88 /min [facility] Body temperature 2022-05-18 13:42:[address] [facility] Respiratory rate 2022-05-18 13:42:00 18 /min [facility] Body height 2022-05-18 13:42:00 156.2 cm [facility] Body weight 2022-05-18 13:42:00 96.48 kg [facility] BMI 2022-05-18 13:42:00 39.54 kg/m2 [facility] Procedures Procedure Date / Time Performed Performing Clinicia n Source CBC WITH DIFF 2024-02-01 17:26:00 Hannah Nick [facility] POCT TEST 2024-02-01 16:31:[address] [facility] POCT URINALYSIS W/O SPECIFIC GRAVITY 2024-01-11 17:34:[address] [facility] CBC WITH DIFF 2024-01-11 17:10:[address] [facility] CBC WITH DIFF 2023-12-22 09:29:[address] [facility] CENTRAL NEURAXIAL BLOCK 2023-12-20 23:52:[address] [facility] CBC WITH DIFF 2023-12-20 20:37:00 Chika Dillard [facility] HEPATITIS B SURFACE ANTIGEN 2023-12-20 20:37:[address] [facility] HCV ANTIBODY 2023-12-20 20:37:[address] [facility] HB ABO GROUPING 2023-12-20 20:37:00 [facility] IMMUNE GLOBULIN 2023-12-20 20:37:[address] [facility] HIV 1/2 AG-AB WITH REFLEX 2023-12-20 20:37:[address] [facility] SYPHILIS IGG/IGM 2023-12-20 20:37:00 Chika Dillard [facility] POCT URINALYSIS 2023-12-15 16:52:[address] [facility] POCT URINALYSIS 2023-12-08 14:52:[address] [facility] POCT URINALYSIS 2023-12-02 15:33:[address] [facility] POCT URINALYSIS 2023-11-25 16:10:[address] [facility] POCT URINALYSIS 2023-11-25 16:09:[address] [facility] POCT URINALYSIS 2023-11-10 16:34:[address] [facility] HIV 1/2 AG-AB WITH REFLEX 2023-10-27 16:07:[address] [facility] SYPHILIS IGG/IGM 2023-10-27 16:07:[address] [facility] POCT URINALYSIS 2023-10-27 15:32:[address] [facility] POCT URINALYSIS 2023-10-11 16:38:[address] [facility] TDAP VACCINE, >11 YRS, IM 2023-10-11 16:08:[address] [facility] POCT URINALYSIS 2023-09-13 21:31:[address] [facility] SECOND AND THIRD TRIMESTER ULTRASOUND 2023-09-09 15:52:[address] [facility] SECOND AND THIRD TRIMESTER ULTRASOUND 2023-08-09 14:07:[address] [facility] POCT URINALYSIS 2023-08-04 13:12:[address] [facility] POCT URINALYSIS 2023 13:48:[address] [facility] POCT URINALYSIS 2023-06-09 13:21:[address] [facility] FIRST TRIMESTER ULTRASOUND 2023-05-28 14:25:[address] [facility] 3 HR GLUCOSE TOLERANCE TEST 2023-05-18 16:42:[address] [facility] 2 HR GLUCOSE TOLERANCE TEST 2023-05-18 15:42:[address] [facility] 1 HR GLUCOSE TOLERANCE TEST 2023-05-18 14:42:[address] [facility] GLUCOSE FASTING 2023-05-18 13:42:[address] [facility] 3 HR GLUCOSE TOLERANCE PANEL 2023-05-18 13:42:[address] [facility] PAP SMEAR-LIQUID BASED-CP 2023-05-12 15:18:[address] [facility] GLUCOSE 1 HOUR POST PRANDIAL 2023-05-12 14:53:[address] [facility] CBC WITH DIFF 2023-05-12 14:53:[address] [facility] RUBELLA SCREEN IGG 2023-05-12 14:53:[address] [facility] VZV ANTIBODY SCREEN 2023-05-12 14:53:[address] [facility] HEPATITIS B SURFACE ANTIGEN 2023-05-12 14:53:[address] [facility] HB ABO GROUPING 2023-05-12 14:53:[address] [facility] HIV 1/2 AG-AB WITH REFLEX 2023-05-12 14:53:[address] [facility] SYPHILIS IGG/IGM 2023-05-12 14:53:[address] [facility] REPORT OF 2023-05-12 05:01:00 Doctor U nassigned, [place] [facility] CBC WITH DIFF 2022-11-29 09:00:00 [facility] CORD GAS 2022-11-28 05:54:00 Paula Rees [facility] CENTRAL NEURAXIAL BLOCK 2022-11-27 17:38:[address] [facility] HEPATITIS B SURFACE ANTIGEN 2022-11-26 23:08:[address] [facility] HB ABO GROUPING 2022-11-26 23:08:00 Paula Rees [facility] RHO (D) IMMUNE GLOBULIN 2022-11-26 23:08:[address] [facility] SYPHILIS IGG/IGM 2022-11-26 23:08:00 [facility] PO[facility]YSIS 2022-11-23 19:09:[address] [facility] POCT URINALYSIS 2022-11-19 16:02:[address] [facility] POCT URINALYSIS 2022-11-12 20:42:[address] [facility] POCT URINALYSIS 2022-11-06 18:01:[address] [facility] SECOND AND THIRD TRIMESTER ULTRASOUND 2022-10-27 15:11:[address] [facility] [facility] POCT URINALYSIS 2022-10-22 16:11:[address] [facility] POCT URINALYSIS 2022-10-09 00:00:[address] [facility] POCT URINALYSIS 2022-09-25 14:24:[address] [facility] SECOND AND THIRD TRIMESTER ULTRASOUND 2022-09-25 13:53:[address] [facility] TDAP VACCINE, >11 YRS, IM 2022-09-10 15:50:[address] [facility] POCT URINALYSIS 2022-09-10 00:00:[address] [facility] GLUCOSE 1 HOUR POST PRANDIAL 2022-08-20 15:20:[address] [facility] CBC WITH DIFF 2022-08-20 15:20:[address] [facility] POCT URINALYSIS 2022-08-20 14:22:[address] [facility] POCT URINALYSIS 2022-07-23 14:23:[address] [facility] POCT URINALYSIS 2022-06-25 15:41:[address] [facility] POCT URINALYSIS 2022-06-25 14:03:[address] [facility] POCT URINALYSIS 2022-06-04 14:41:[address] [facility] GC & CHLAMYDIA AMPLIFIED ASSAY 2022-05-18 14:59:[address] [facility] PAP SMEAR-LIQUID BASED-CP 2022-05-18 14:59:[address] [facility] URINE CULTURE 2022-05-18 14:58:[address] [facility] GLUCOSE 1 HOUR POST PRANDIAL 2022-05-18 14:52:[address] [facility] CBC WITH DIFF 2022-05-18 14:52:[address] [facility] RUBELLA SCREEN IGG 2022-05-18 14:52:[address] [facility] VZV ANTIBODY SCREEN 2022-05-18 14:52:[address] [facility] HEPATITIS B SURFACE ANTIGEN 2022-05-18 14:52:[address] [facility] HB ABO GROUPING 2022-05-18 14:52:[address] [facility] HIV 1/2 AG-AB WITH REFLEX 2022-05-18 14:52:[address] [facility] SYPHILIS IGG/IGM 2022-05-18 14:52:[address] [facility] POCT TEST 2022-05-18 13:40:[address] [facility] POCT URINALYSIS W/O SPECIFIC GRAVITY 2022-05-18 13:39:[address] [facility] NOTICE OF PRIVACY PRACTICES 2022-05-18 12:48:09 Doctor Unassigned, [place] [facility] Encounters Start Date/Time End Date/Time Encounter Type Admission Type Attending Clinicians Care Facility Care Department Encounter ID Source 2024-05-01 10:30:00 2024-05-01 11:31:42 Outpatient HANNAH MCCOY [facility] [id number] [facility] 2024-02-03 00:00:00 2024-02-03 08:29:02 Case Management Hannah Nick [facility] SCIENTIST/ENGINEER [facility] & CHILD [facility] 1..840.114 350.1.13.10 4.2.7.2.686 [id number] 107 [id number] [facility] 2024-02-01 10:00:00 2024-02-01 11:27:08 Outpatient HANNAH MCCOY [facility] [id number] [facility] 2024-02-01 10:00:00 2024-02-01 11:27:08 Office Visit Hannah Nick [facility] SCIENTIST/ENGINEER [facility] & CHILD [facility] 1..840.114 350.1.13.10 4.2.7.2.686 [id number] 107 [id number] [facility] 2024-01-14 00:00:00 2024-01-18 08:12:52 Telephone Izabela Soliman [facility] SCIENTIST/ENGINEER [facility] & CHILD [facility] 1.2.840.114 350.1.13.10 4.2.7.2.686 [id number] 107 [id number] [facility] 2024-01-11 10:30:00 2024-01-11 11:10:15 Outpatient R MARLENE ANGELES [facility] [id number] [facility] 2024-01-11 10:30:00 2024-01-11 11:10:15 Routine Visit Alejandro Marlene Julius [facility] SCIENTIST/ENGINEER [facility] & CHILD [facility] 1.2.840.114 350.1.13.10 4.2.7.2.686 [id number] 107 [id number] [facility] 2023-12-20 12:10:00 2023-12-22 15:27:00 Inpatient P NABILA VÁZQUEZ KARIN FOX, KARIN [facility] [id number] [facility] 2023-12-20 12:10:00 2023-12-22 15:27:00 Hospital Encounter Nabila Vázquez [facility] 1.2.840.114 350.1.13.10 4.2.7.2.686 [id number] 133 [id number] [facility] 2023-12-20 18:40:00 2023-12-21 06:30:00 Anesthesia Event Carisa Bruno Sommer Kirsch [facility] 1.2.840.114 350.1.13.10 4.2.7.2.686 [id number] [facility] 2023-12-15 10:30:00 2023-12-15 11:42:37 Outpatient R IZABELA SOLIMAN [facility] [id number] [facility] 2023-12-15 10:30:00 2023-12-15 11:42:37 Routine Visit Izabela Soliman [facility] SCIENTIST/ENGINEER [facility] & CHILD [facility] 1.2.840.114 350.1.13.10 4.2.7.2.686 [id number] 107 [id number] [facility] 2023-12-07 00:00:00 2023-12-09 10:42:28 Telephone JourdanIzabela Carla [facility] SCIENTIST/ENGINEER [facility] & CHILD [facility] 1.2.840.114 350.1.13.10 4.2.7.2.686 [id number] 107 [id number] [facility] 2023-12-08 09:45:00 2023-12-08 10:14:26 Outpatient R JOURDAN IZABELA [facility] [id number] [facility] 2023-12-08 09:45:00 2023-12-08 10:14:26 Routine Visit JourdanIzabela Carla [facility] SCIENTIST/ENGINEER [facility] & CHILD [facility] 1.2.840.114 350.1.13.10 4.2.7.2.686 [id number] 107 [id number] [facility] 2023-12-02 10:30:00 2023-12-02 11:07:39 Routine Visit Jourdan Izabela Carla [facility] SCIENTIST/ENGINEER [facility] & CHILD [facility] 1.2.840.114 350.1.13.10 4.2.7.2.686 [id number] 107 [id number] [facility] 2023-12-02 10:30:00 2023-12-02 11:07:39 Outpatient R IZABELA SOLIMAN [facility] [id number] [facility] 2023-11-25 10:45:00 2023-11-25 11:05:06 Outpatient R IZABELA SOLIMAN [facility] [id number] [facility] 2023-11-25 10:45:00 2023-11-25 11:05:06 Routine Visit Jourdan Izabela Carla [facility] SCIENTIST/ENGINEER [facility] & CHILD [facility] 1.2.840.114 350.1.13.10 4.2.7.2.686 [id number] 107 [id number] [facility] 2023-11-10 11:00:00 2023-11-10 11:32:28 Outpatient R IZABELA SOLIMAN [facility] [id number] [facility] 2023-11-10 11:00:00 2023-11-10 11:32:28 Routine Visit NancyjoryIzabela Carla NDCIRILO SCIENTIST/ENGINEER [facility] & CHILD [facility] 1..840.114 350.1.13.10 4.2.7.2.686 [id number] 107 [id number] [facility] 2023-10-27 10:15:00 2023-10-27 11:07:58 Outpatient R NANCYJORYIZABELA [facility] [id number] [facility] 2023-10-27 10:15:00 2023-10-27 11:07:58 Routine Visit YolissedrickjoryIzabela Carla [facility] SCIENTIST/ENGINEER [facility] & CHILD [facility] ..840.114 350.1.13.10 4.2.7.2.686 [id number] 107 [id number] [facility] 2023-10-11 10:30:00 2023-10-11 11:27:24 Outpatient R NANCYJORYIZABELA [facility] [id number] [facility] 2023-10-11 10:30:00 2023-10-11 11:27:24 Routine Visit YolisIzabela muñoz Carla [facility] SCIENTIST/ENGINEER [facility] & CHILD [facility] ..840.114 350.1.13.10 4.2.7.2.686 [id number] 107 [id number] [facility] 2023-09-28 00:00:00 2023-09-28 08:59:54 Telephone NancyjoryIzabela Carla [facility] SCIENTIST/ENGINEER [facility] & CHILD [facility] .840.114 350.1.13.10 4.2.7.2.686 [id number] 107 [id number] [facility] 2023-09-27 07:15:00 2023-09-27 08:38:52 Outpatient R IZABELA SOLIMAN [facility] [id number] [facility] 2023-09-27 07:15:00 2023-09-27 08:38:52 Routine Visit Izabela Soliman [facility] SCIENTIST/ENGINEER [facility] & CHILD [facility] 1.2.840.114 350.1.13.10 4.2.7.2.686 [id number] 107 [id number] [facility] 2023-09-14 00:00:00 2023-09-14 16:49:17 Abstract Izabela Soliman Carla [facility] SCIENTIST/ENGINEER [facility] & CHILD [facility] 1.2.840.114 350.1.13.10 4.2.7.2.686 [id number] 107 [id number] [facility] 2023-09-13 15:30:00 2023-09-13 16:30:34 Outpatient R IZABELA SOLIMAN [facility] [id number] [facility] 2023-09-13 15:30:00 2023-09-13 16:30:34 Routine Visit YolissedrickjoryJorge LuisIzabela C [facility] SCIENTIST/ENGINEER [facility] & CHILD [facility] 1.2.840.114 350.1.13.10 4.2.7.2.686 [id number] 107 [id number] [facility] 2023-09-09 10:30:00 2023-09-09 10:51:58 Outpatient R MARLENE ANGELES [facility] [id number] [facility] 2023-09-09 10:30:00 2023-09-09 10:51:58 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 107 [id number] [facility] 2023-08-09 08:00:00 2023-08-09 09:13:45 Outpatient R LA ROSAS SHANNON [facility] [id number] [facility] 2023-08-09 08:00:00 2023-08-09 09:13:45 Full Stack Software Engineer Visit Ultrasound, La Lopez [facility] SCIENTIST/ENGINEER [facility] & CHILD [facility] 1..840.114 350.1.13.10 4.2.7.2.686 [id number] [facility] 2023-08-04 08:00:00 2023-08-04 08:33:25 Outpatient R IZABELA SOLIMAN [facility] [id number] [facility] 2023-08-04 08:00:00 2023-08-04 08:33:25 Routine Visit Izabela Soliman [facility] SCIENTIST/ENGINEER [facility] & CHILD [facility] ..840.114 350.1.13.10 4.2.7.2.686 [id number] 107 [id number] [facility] 2023 08:00:00 2023 08:39:14 Outpatient R IZABELA SOLIMAN [facility] [id number] [facility] 2023 08:00:00 2023 08:39:14 Routine Visit Izabela Soliman [facility] ..840.114 350.1.13.10 4.2.7.2.686 [id number] 107 [id number] [facility] 2023-06-09 08:00:00 2023-06-09 09:09:04 Outpatient R YOLISSEDRICKJORY IZABELA [facility] [id number] [facility] 2023-06-09 08:00:00 2023-06-09 09:09:04 Routine Visit Izabela Soliman [facility] SCIENTIST/ENGINEER [facility] & CHILD [facility] 1..840.114 350.1.13.10 4.2.7.2.686 [id number] 107 [id number] [facility] 2023-05-28 08:30:00 2023-05-28 08:55:30 Outpatient R NABILA VÁZQUEZ KARIN [facility] [id number] [facility] 2023-05-28 08:30:00 2023-05-28 08:55:30 Full Stack Software Engineer Visit Ultrasound, Nabila Shi [facility] SCIENTIST/ENGINEER [facility] & CHILD [facility] 1.840.114 350.1.13.10 4.2.7.2.686 [id number] 369 [id number] [facility] 2023-05-28 00:00:00 2023-05-28 00:00:00 Abstract Izabela Soliman [facility] 1..840.114 350.1.13.10 4.2.7.2.686 [id number] 107 [id number] [facility] 2023-05-18 08:00:00 2023-05-18 11:51:56 Outpatient R YOLISSEDRICKJORY IZABELA [facility] [id number] [facility] 2023-05-18 08:00:00 2023-05-18 11:51:56 Full Stack Software Engineer Visit Lab, Izabela Adams [facility] 1..840.114 350.1.13.10 4.2.7.2.686 [id number] 107 [id number] [facility] 2023-05-13 00:00:00 2023-05-13 00:00:00 Telephone Jorge Luis Solimanreji Aguirre [facility] SCIENTIST/ENGINEER [facility] & CHILD [facility] 1.2.840.114 350.1.13.10 4.2.7.2.686 [id number] 107 [id number] [facility] 2023-05-13 00:00:00 2023-05-13 00:00:00 Telephone Jourdan Izabela Aguirre [facility] SCIENTIST/ENGINEER [facility] & CHILD [facility] 1.2.840.114 350.1.13.10 4.2.7.2.686 [id number] 107 [id number] [facility] 2023-05-12 08:30:00 2023-05-12 09:54:55 Outpatient R IZABELA SOLIMAN NDCIRILO [facility] [id number] [facility] 2023-05-12 08:30:00 2023-05-12 09:54:55 Initial Visit Izabela Soliman [facility] SCIENTIST/ENGINEER [facility] CHILD [facility] 1.840.114 350.1.13.10 4.2.7.2.686 [id number] 107 [id number] [facility] 2023-05-12 00:00:00 2023-05-12 00:00:00 Orders Only Doctor Unassigned, [place] [facility] 1.840.114 350.1.13.10 4.2.7.2.686 [id number] [facility] 2023-01-18 10:00:00 2023-01-18 10:47:47 Outpatient R IZABELA SOLIMAN [facility] [id number] [facility] 2023-01-18 10:00:00 2023-01-18 10:47:47 Office Visit Izabela Soliman [facility] SCIENTIST/ENGINEER [facility] CHILD [facility] 1.2.840.114 350.1.13.10 4.2.7.2.686 [id number] 107 [id number] [facility] 2022-12-21 09:00:00 2022-12-21 09:44:17 Outpatient R IZABELA SOLIMAN [facility] [id number] [facility] 2022-12-21 09:00:00 2022-12-21 09:44:17 Routine Visit YolissedrickjoryIzabela Carla [facility] SCIENTIST/ENGINEER [facility] & CHILD [facility] 1..840.114 350.1.13.10 4.2.7.2.686 [id number] 107 [id number] [facility] 2022-11-26 15:47:00 2022-11-29 13:15:00 Inpatient P LA ROSAS SHANNON [facility] [id number] [facility] 2022-11-26 15:47:00 2022-11-29 13:15:00 Hospital Encounter La Rosas [facility] 1.840.114 350.1.13.10 4.2.7.2.686 [id number] [facility] 2022-11-27 12:15:00 2022-11-28 07:37:00 Anesthesia Event Marilynn [facility], [facility] 1..840.114 350.1.13.10 4.2.7.2.686 [id number] [facility] 2022-11-23 14:15:00 2022-11-23 14:52:18 Outpatient R IZABELA SOLIMAN [facility] [id number] [facility] 2022-11-23 14:15:00 2022-11-23 14:52:18 Routine Visit YolissedrickJorge Luis corleyola Carla [facility] SCIENTIST/ENGINEER [facility] & CHILD [facility] 1..840.114 350.1.13.10 4.2.7.2.686 [id number] 107 [id number] [facility] 2022-11-19 10:45:00 2022-11-19 11:11:43 Outpatient R JOURDAN IZABELA [facility] [id number] [facility] 2022-11-19 10:45:00 2022-11-19 11:11:43 Routine Visit Izabela Soliman NDCIRILO SCIENTIST/ENGINEER [facility] & CHILD [facility] 1.2.840.114 350.1.13.10 4.2.7.2.686 [id number] 107 [id number] [facility] 2022-11-12 15:30:00 2022-11-12 15:54:37 Outpatient R IZABELA SOLIMAN [facility] [id number] [facility] 2022-11-12 15:30:00 2022-11-12 15:54:37 Routine Visit Izabela Soliman [facility] SCIENTIST/ENGINEER [facility] & CHILD [facility] 1..840.114 350.1.13.10 4.2.7.2.686 [id number] 107 [id number] [facility] 2022-11-09 00:00:00 2022-11-09 00:00:00 Telephone Izabela Soliman [facility] SCIENTIST/ENGINEER [facility] & CHILD [facility] 1.2.840.114 350.1.13.10 4.2.7.2.686 [id number] 107 [id number] [facility] 2022-11-06 12:45:00 2022-11-06 13:30:12 Outpatient R IZABELA SOLIMAN [facility] [id number] [facility] 2022-11-06 12:45:00 2022-11-06 13:30:12 Routine Visit Izabela Soliman [facility] SCIENTIST/ENGINEER [facility] & CHILD [facility] 1.2.840.114 350.1.13.10 4.2.7.2.686 [id number] 107 [id number] [facility] 2022-11-05 00:00:00 2022-11-05 00:00:00 Abstract Izabela Soliman [facility] SCIENTIST/ENGINEER [facility] & CHILD [facility] 1.840.114 350.1.13.10 4.2.7.2.686 [id number] 107 [id number] [facility] 2022-11-05 00:00:00 2022-11-05 00:00:00 Telephone Izabela Soliman [facility] SCIENTIST/ENGINEER [facility] & CHILD [facility] 1.840.114 350.1.13.10 4.2.7.2.686 [id number] 107 [id number] [facility] 2022-10-29 00:00:00 2022-10-29 00:00:00 Abstract Izabela Soliman [facility] SCIENTIST/ENGINEER [facility] 1.840.114 350.1.13.10 4.2.7.2.686 [id number] 107 [id number] [facility] 2022-10-27 10:00:00 2022-10-27 10:24:33 Outpatient P MINAL HERNDON [facility] [id number] [facility] 2022-10-27 10:00:00 2022-10-27 10:24:33 Full Stack Software Engineer Visit 2, [facility] Room Minal Herndon NDCIRILO SCIENTIST/ENGINEER [facility] & CHILD [facility] 1.0.114 350.1.13.10 4.2.7.2.686 [id number] [facility] 2022-10-22 10:45:00 2022-10-22 11:30:58 Outpatient R IZABELA SOLIMAN [facility] [id number] [facility] 2022-10-22 10:45:00 2022-10-22 11:30:58 Routine Visit Izabela Soliman [facility] SCIENTIST/ENGINEER [facility] & CHILD [facility] 1.0.114 350.1.13.10 4.2.7.2.686 [id number] 107 [id number] [facility] 2022-10-09 15:00:00 2022-10-09 15:31:35 Outpatient R IZABELA SOLIMAN [facility] [id number] [facility] 2022-10-09 15:00:00 2022-10-09 15:31:35 Routine Visit Izabela Soliman [facility] SCIENTIST/ENGINEER [facility] & CHILD [facility] 1.2840.114 350.1.13.10 4.2.7.2.686 [id number] 107 [id number] [facility] 2022-09-25 10:30:00 2022-09-25 10:45:00 Routine Visit Izabela Soliman [facility] SCIENTIST/ENGINEER [facility] & CHILD [facility] 1..840.114 350.1.13.10 4.2.7.2.686 [id number] 107 [id number] [facility] 2022-09-25 08:30:00 2022-09-25 09:41:44 Outpatient P FEMI HOGAN COREY [facility] [id number] [facility] 2022-09-25 08:30:00 2022-09-25 09:41:44 Full Stack Software Engineer Visit Ultrasound, Femi Pemberton [facility] SCIENTIST/ENGINEER [facility] & CHILD [facility] 1..840.114 350.1.13.10 4.2.7.2.686 [id number] 369 [id number] [facility] 2022-09-25 00:00:00 2022-09-25 00:00:00 Abstract Izabela Soliman [facility] SCIENTIST/ENGINEER [facility] & CHILD [facility] 1..840.114 350.1.13.10 4.2.7.2.686 [id number] 107 [id number] [facility] 2022-09-24 00:00:00 2022-09-24 00:00:00 Telephone Izabela oSliman [facility] SCIENTIST/ENGINEER [facility] & CHILD [facility] 1.2.840.114 350.1.13.10 4.2.7.2.686 [id number] 107 [id number] [facility] 2022-09-10 10:15:00 2022-09-10 11:29:13 Outpatient R IZABELA SOLIMAN [facility] [id number] [facility] 2022-09-10 10:15:00 2022-09-10 11:29:13 Routine Visit Izabela Soliman [facility] SCIENTIST/ENGINEER [facility] & CHILD [facility] 1.2840.114 350.1.13.10 4.2.7.2.686 [id number] 107 [id number] [facility] 2022-08-20 09:00:00 2022-08-20 10:25:08 Outpatient R IZABELA SOLIMAN [facility] [id number] [facility] 2022-08-20 09:00:00 2022-08-20 10:25:08 Routine Visit Izabela Soliman [facility] SCIENTIST/ENGINEER [facility] 1.2840.114 350.1.13.10 4.2.7.2.686 [id number] 107 [id number] [facility] 2022-08-14 00:00:00 2022-08-14 00:00:00 Abstract Izabela Soliman [facility] SCIENTIST/ENGINEER [facility] 1.2.840.114 350.1.13.10 4.2.7.2.686 [id number] 107 [id number] [facility] 2022-08-07 08:00:00 2022-08-07 09:31:53 Full Stack Software Engineer Visit 3, [facility] Us Room [facility] 1.2.840.114 350.1.13.10 4.2.7.2.686 [id number] [facility] 2022-08-07 08:00:00 2022-08-07 08:00:00 Outpatient P FAN EMEKAEMEKA FIELD [facility] [id number] [facility] 2022-07-23 09:00:00 2022-07-23 09:47:04 Outpatient R IZABELA SOLIMAN [facility] [id number] [facility] 2022-07-23 09:00:00 2022-07-23 09:47:04 Routine Visit Izabela Soliman Carla [facility] SCIENTIST/ENGINEER [facility] 1..840.114 350.1.13.10 4.2.7.2.686 [id number] 107 [id number] [facility] 2022-06-25 09:00:00 2022-06-25 09:44:27 Outpatient R IZABELA SOLIMAN [facility] [id number] [facility] 2022-06-25 09:00:00 2022-06-25 09:44:27 Routine Visit Izabela Soliman [facility] SCIENTIST/ENGINEER [facility] & CHILD [facility] 1..840.114 350.1.13.10 4.2.7.2.686 [id number] 107 [id number] [facility] 2022-06-15 08:00:00 2022-06-15 08:00:00 Outpatient R NANCYJORYIZABELA [facility] [id number] [facility] 2022-06-04 09:15:00 2022-06-04 10:04:28 Routine Visit Risk, Ang-Rmchp-N p/High Chelle Singh [facility] SCIENTIST/ENGINEER [facility] & CHILD [facility] 1..840.114 350.1.13.10 4.2.7.2.686 [id number] 107 [id number] [facility] 2022-06-04 09:15:00 2022-06-04 10:04:28 Outpatient R CHELLE SINGH [facility] [id number] [facility] 2022-05-26 00:00:00 2022-05-26 00:00:00 Telephone Izabela Soliman [facility] SCIENTIST/ENGINEER [facility] & CHILD [facility] 1.2.840.114 350.1.13.10 4.2.7.2.686 [id number] 107 [id number] [facility] 2022-05-21 00:00:00 2022-05-21 00:00:00 Telephone Izabela Soliman [facility] SCIENTIST/ENGINEER [facility] & CHILD [facility] 1.2.840.114 350.1.13.10 4.2.7.2.686 [id number] 107 [id number] [facility] 2022-05-20 00:00:00 2022-05-20 00:00:00 Telephone Izabela Soliman [facility] SCIENTIST/ENGINEER [facility] & CHILD [facility] 1.2.840.114 350.1.13.10 4.2.7.2.686 [id number] 107 [id number] [facility] 2022-05-18 08:30:00 2022-05-18 10:15:01 Initial Visit YolisIzabela muñoz [facility] SCIENTIST/ENGINEER [facility] & CHILD [facility] 1.2.840.114 350.1.13.10 4.2.7.2.686 [id number] 107 [id number] [facility] 2022-05-18 08:00:00 2022-05-18 10:14:47 Outpatient R IZABELA SOLIMAN [facility] [id number] [facility] 2022-05-18 00:00:00 2022-05-18 00:00:00 Orders Only Doctor Unassigned, [place] [facility] [id number] [id number] [id number] [facility] Results Test Description Test Time Test Comments Results Result Co mments Source [facility] with [id number] 05:51:07* Test Item Value Reference Range Interpretation Comme nts WBC (test code = 6690-2) 11.11 4.30-11.10 H RBC (test code = 789-8) 4.32 3.93-5.25 HGB (test code = 718-7) 9.9 g/dL 11.6-15.0 L HCT (test code = 4544-3) 33.0 % 35.7-45.2 L MCV (test code = 787-2) 76.4 fL 80.6-95.5 L MCH (test code = 785-6) 22.9 pg 25.9-32.8 L MCHC (test code = 786-4) 30.0 g/dL 31.6-35.1 L RDW-SD (test code = 18088-9) 42.9 fL 39.0-49.9 RDW-CV (test code = 788-0) 15.5 % 12.0-15.5 PLT (test code = 777-3) 352 166-358 MPV (test code = 38861-9) 11.5 fL 9.5-12.9 NRBC/100 WBC (test code = 7284814455) 0.0 0.0-10.0 NRBC x10^3 (test code = 9770847737) See_Comment [Automated messa ge] The system which generated this result transmitted reference range: 10*3/?L. The reference range was not used to interpret this result as normal/abnormal. GRAN MAT (NEUT) % (test code = 770-8) 71.3 % IMM GRAN % (test code = 3492964534) 0.40 % LYMPH % (test code = 736-9) 17.8 % MONO % (test code = 5905-5) 7.0 % EOS % (test code = 713-8) 2.9 % BASO % (test code = 706-2) 0.6 % GRAN MAT x10^3(ANC) (test code = 3690259102) 7.92 10*3/uL 1.88-7.09 H IMM GRAN x10^3 (test code = 9297475934) 0.04 10*3/uL 0.00-0.06 LYMPH x10^3 (test code = 731-0) 1.98 10*3/uL 1.32-3.29 MONO x10^3 (test code = 742-7) 0.78 10*3/uL 0.33-0.92 EOS x10^3 (test code = 711-2) 0.32 10*3/uL 0.03-0.39 BASO x10^3 (test code = 704-7) 0.07 10*3/uL 0.01-0.07 Lab Interpretation (test code = 20563-3) [facility]normal [facility] w/o Specific [id number] 17:34:00* Test Item Value Reference Range Interpretation Comme nts POCT PH U (test code = 3254) 5 mg/dl 5-8 POCT U LEUK EST (test code = 3263) 1+ Negative - Negative POCT U NIT (test code = 3262) Pos Negative - Negati ve POCT U PROT (test code = 3259) 1+ Negative - Negat kailee POCT U GLU (test code = 3256) Nml Negative - Negati ve POCT U KETONE (test code = 3258) None Negative - Neg ative POCT U BLD (test code = 3257) Large Negative - Negati ve [facility] CenterHcv [id number] 16:26:03* Test Item Value Reference Range Interpretation Comme [facility] HCV Ab (test code = 43870-2) Negative HCV Semi-Quantitative (test code = 25902-0) 0.01 [facility] CenterRHO (D) IMMUNE [id number] 14:34:59* Test Item Value Reference Range Interpretation Comme nts RHIG CANDIDATE? (test code = 5188) No- see comment Patient is not a candidate for RhIg- Patient is Rh Positive.Performed at [facility] Laboratory Services - [facility] Blood [address] [place] [address] [id number] Free: [phone] No. [id number] [facility] CenterGALV ONLY - SYPHILIS [id number] 13:47:58* Test Item Value Reference Range Interpretation Comme [facility] Syphilis IgG/IgM (test code = 61664-6) Non-reactive Non-reactive BERTHA (test code = BERTHA) Non-reactive - No serologic evidence of T. pallidum infection. Cannot exclude incubating or early syphilis. Submit a second specimen in 2-4 weeks if syphilis is clinically suspected. Equivocal - Further testing to follow. Reactive - Further testing to follow. Lab Interpretation (test code = 41355-0) Normal [facility] CenterCentral Neuraxial [id number] 23:52:00 Carisa Bruno MD ? ? 12/20/2023 ?7:08 PM Central Neuraxial Block Date/Time: 12/20/2023 6:52 PM Performed by: Carisa Bruno MDAuthorized by: Vandana Espitia MD ?Patient Location: OBReason for Block: OB request, Patient request and Labor analgesiaStaff: ?Anesthesiologist: Vandana Espitia MD ?Resident/SERVICE OR WORK DISPATCHER CHIEF: Carisa Bruno MD ?Performed by: resident/CRNAPreanesthetic Checklist: patient identified, IV checked, risks and benefits explained, monitors and equipment checked, timeout performed, pre-op evaluation, site marked and anesthesia consentProcedure: ?Type of Neuraxial: Epidural ?Epidural Description: 1st attempt ? Sterility Prep cap, drape, gloves, hand hygiene and mask ? ?Sedation Level no sedation ?Patient Position: sitting ?Prep: Betadine and patient draped ? ?Monitoring: heart rate, continuous pulse ox, heart rate / toco and NIBP ?Location: lumbar (1-5) ?Lumbar: L3-L4 ?Approach: midline ? ?Technique: catheter and RAMIRO saline ?Guidance with: holly eddy technique}Epidural/Spinal [place] and/or Catheter: ?Epidural/Spinal Kit: BBraun ?Needle Type:Tuohy ?Needle Gauge: 17 G ?Needle Length: 3.5 in (8.89 cm) ?Needle Insertion Depth: 6.5 ?Catheter Type: multiport ? ?Catheter Size: 19 G ? ?Catheter at Skin Depth: 12 ?Number of Attempts: 1 ?Test Dose: lidocaine 1.5% with epinephrine 1-to-200,000 ? ?Dose: 3 cc ? ?Catheter Securement Method: surgical tape, Tegaderm, clear occlusive dressing and liquid medical adhesiveAssessment: ?Sensory Level: below T10 ?Block Outcome: patient tolerated procedure well and a full evaluation is pending ? ?Procedure Assessment: patient tolerated procedure well with no complicationsNotes: ? Patient identified; pre- procedure verification.Patient prepped and draped in standard sterile fashion using betadine x 3Subcutaneous infiltration with 1% Lidocaine RAMIRO at 6.5 cm; catheter secured at 12 cm with mastisol, tegaderm x2 and 3-inch clear tape.Aspiration test negative x 3Test dose negativePatient tolerated procedure well with no immediate complications Epidural expectations; PCEA explained and fall precautions given.[facility] CenterHIV [facility]/2 AG-AB WITH [id number] 22:06:09* Test Item Value Reference Range Interpretation Comme nts HIV Semi-quantitative (test code = 18214-7) 0.08 Negative BERTHA (test code = BERTHA) Non-reactive for HIV-1 antigen and HIV-1/HIV-2 antibodies. ?No laboratory evidence of HIV infection. ?Repeat in 2-4 weeks if acute HIV infection is suspected. [facility] CenterHepatitis B Surface [id number] 21:56:22 * Test Item Value Reference Range Interpretation Comme nts HBsAg Semi-Quantitative (amrik t code = 5195-3) 0.[address] [facility] CenterCBC with [id number] 20:56:56* Test Item Value Reference Range Interpretation Comme nts WBC (test code = 6690-2) 15.69 4.30-11.10 H RBC (test code = 789-8) 4.06 3.93-5.25 HGB (test code = 718-7) 9.5 g/dL 11.6-15.0 L HCT (test code = 4544-3) 30.6 % 35.7-45.2 L MCV (test code = 787-2) 75.4 fL 80.6-95.5 L MCH (test code = 785-6) 23.4 pg 25.9-32.8 L MCHC (test code = 786-4) 31.0 g/dL 31.6-35.1 L RDW-SD (test code = 34445-1) 45.1 fL 39.0-49.9 RDW-CV (test code = 788-0) 16.6 % 12.0-15.5 H PLT (test code = 777-3) 250 166-358 MPV (test code = 19202-5) 11.3 fL 9.5-12.9 NRBC/100 WBC (test code = 3425504357) 0.0 0.0-10.0 NRBC x10^3 (test code = 5574170635) See_Comment [Automated message] The system which generated this result transmitted reference range: 10*3/?L. The reference range was not used to interpret this result as normal/abnormal. GRAN MAT (NEUT) % (test code = 770-8) 82.3 % IMM GRAN % (test code = 5482204671) 1.00 % LYMPH % (test code = 736-9) 11.2 % MONO % (test code = 5905-5) 4.9 % EOS % (test code = 713-8) 0.4 % BASO % (test code = 706-2) 0.2 % GRAN MAT x10^3(ANC) (test code = 6212054164) 12.91 10*3/uL 1.88-7.09 H IMM GRAN x10^3 (test code = 9813517877) 0.16 10*3/uL 0.00-0.06 H LYMPH x10^3 (test code = 731-0) 1.76 10*3/uL 1.32-3.29 MONO x10^3 (test code = 742-7) 0.77 10*3/uL 0.33-0.92 EOS x10^3 (test code = 711-2) 0.06 10*3/uL 0.03-0.39 BASO x10^3 (test code = 704-7) 0.03 10*3/uL 0.01-0.07 Lab Interpretation (test code = 06642-9) Abnormal [facility] CenterType and Screen - ONCE [id number] 20:45:00 * Test Item Value Reference Range Interpretation Comme nts ABO & RH (test code = 20) O POSITIVE IAT (test code = 1185) Negative [facility] CenterPOCT URINALYSIS W SPECIFIC [id number] 16:52:00* Test Item Value Reference Range Interpretation Comme nts POCT U SP GRAV (test code = 3255) . 1.005-1.025 POCT PH U (test code = 3254) . 5-8 POCT U LEUK EST (test code = 3263) . Negative - N egative POCT U NIT (test code = 3262) . Negative - Negati ve POCT U PROT (test code = 3259) trace Negative - Negat kailee POCT U GLU (test code = 3256) neg Negative - Negati ve POCT U KETONE (test code = 3258) . Negative - Neg ative POCT U UROBILI (test code = 3260) . 0.2-1 POCT U BILI (test code = 3261) . Negative - Negat kailee POCT U BLD (test code = 3257) . Negative - Negati ve POCT U COLOR (test code = 3266) . POCT U APPEAR (test code = 3267) [facility] URINALYSIS W SPECIFIC [id number] 14:53:00* Test Item Value Reference Range Interpretation Comme nts POCT U SP GRAV (test code = 3255) . 1.005-1.025 POCT PH U (test code = 3254) . 5-8 POCT U LEUK EST (test code = 3263) . Negative - N egative POCT U NIT (test code = 3262) . Negative - Negati ve POCT U PROT (test code = 3259) trace Negative - Negat kailee POCT U GLU (test code = 3256) neg Negative - Negati ve POCT U KETONE (test code = 3258) . Negative - Neg ative POCT U UROBILI (test code = 3260) . 0.2-1 POCT U BILI (test code = 3261) . Negative - Negat kailee POCT U BLD (test code = 3257) . Negative - Negati ve POCT U COLOR (test code = 3266) . POCT U APPEAR (test code = 3267) . [facility] URINALYSIS W SPECIFIC [id number] 15:33:00* Test Item Value Reference Range Interpretation Comme nts POCT U SP GRAV (test code = 3255) . 1.005-1.025 POCT PH U (test code = 3254) . 5-8 POCT U LEUK EST (test code = 3263) . Negative - N egative POCT U NIT (test code = 3262) . Negative - Negati ve POCT U PROT (test code = 3259) trace Negative - Negat kailee POCT U GLU (test code = 3256) neg Negative - Negati ve POCT U KETONE (test code = 3258) . Negative - Neg ative POCT U UROBILI (test code = 3260) . 0.2-1 POCT U BILI (test code = 3261) . Negative - Negat kailee POCT U BLD (test code = 3257) . Negative - Negati ve POCT U COLOR (test code = 3266) . POCT U APPEAR (test code = 3267) . [facility] URINALYSIS W SPECIFIC [id number] 16:10:00* Test Item Value Reference Range Interpretation Comme nts POCT U SP GRAV (test code = 3255) . 1.005-1.025 POCT PH U (test code = 3254) . 5-8 POCT U LEUK EST (test code = 3263) . Negative - N egative POCT U NIT (test code = 3262) . Negative - Negati ve POCT U PROT (test code = 3259) trace Negative - Negat kailee POCT U GLU (test code = 3256) neg Negative - Negati ve POCT U KETONE (test code = 3258) . Negative - Neg ative POCT U UROBILI (test code = 3260) . 0.2-1 POCT U BILI (test code = 3261) . Negative - Negat kailee POCT U BLD (test code = 3257) . Negative - Negati ve POCT U COLOR (test code = 3266) . POCT U APPEAR (test code = 3267) [facility] URINALYSIS W SPECIFIC [id number] 16:09:00* Test Item Value Reference Range Interpretation Comme nts POCT U SP GRAV (test code = 3255) . 1.005-1.025 POCT PH U (test code = 3254) . 5-8 POCT U LEUK EST (test code = 3263) . Negative - N egative POCT U NIT (test code = 3262) . Negative - Negati ve POCT U PROT (test code = 3259) trace Negative - Negat kailee POCT U GLU (test code = 3256) neg Negative - Negati ve POCT U KETONE (test code = 3258) . Negative - Neg ative POCT U UROBILI (test code = 3260) . 0.2-1 POCT U BILI (test code = 3261) . Negative - Negat kailee POCT U BLD (test code = 3257) . Negative - Negati ve POCT U COLOR (test code = 3266) . POCT U APPEAR (test code = 3267) [facility] URINALYSIS W SPECIFIC [id number] 16:35:00* Test Item Value Reference Range Interpretation Comme nts POCT U SP GRAV (test code = 3255) . 1.005-1.025 POCT PH U (test code = 3254) . 5-8 POCT U LEUK EST (test code = 3263) . Negative - N egative POCT U NIT (test code = 3262) . Negative - Negati ve POCT U PROT (test code = 3259) trace Negative - Negat kailee POCT U GLU (test code = 3256) neg Negative - Negati ve POCT U KETONE (test code = 3258) . Negative - Neg ative POCT U UROBILI (test code = 3260) . 0.2-1 POCT U BILI (test code = 3261) . Negative - Negat kailee POCT U BLD (test code = 3257) . Negative - Negati ve POCT U COLOR (test code = 3266) . POCT U APPEAR (test code = 3267) [facility] URINALYSIS W SPECIFIC [id number] 15:32:00* Test Item Value Reference Range Interpretation Comme nts POCT U SP GRAV (test code = 3255) . 1.005-1.025 POCT PH U (test code = 3254) . 5-8 POCT U LEUK EST (test code = 3263) . Negative - N egative POCT U NIT (test code = 3262) . Negative - Negati ve POCT U PROT (test code = 3259) trace Negative - Negat kailee POCT U GLU (test code = 3256) neg Negative - Negati ve POCT U KETONE (test code = 3258) . Negative - Neg ative POCT U UROBILI (test code = 3260) . 0.2-1 POCT U BILI (test code = 3261) . Negative - Negat kailee POCT U BLD (test code = 3257) . Negative - Negati ve POCT U COLOR (test code = 3266) . POCT U APPEAR (test code = 3267) [facility] URINALYSIS W SPECIFIC [id number] 16:39:00* Test Item Value Reference Range Interpretation Comme nts POCT U SP GRAV (test code = 3255) . 1.005-1.025 POCT PH U (test code = 3254) . 5-8 POCT U LEUK EST (test code = 3263) . Negative - N egative POCT U NIT (test code = 3262) . Negative - Negati ve POCT U PROT (test code = 3259) trace Negative - Negat kailee POCT U GLU (test code = 3256) neg Negative - Negati ve POCT U KETONE (test code = 3258) . Negative - Neg ative POCT U UROBILI (test code = 3260) . 0.2-1 POCT U BILI (test code = 3261) . Negative - Negat kailee POCT U BLD (test code = 3257) . Negative - Negati ve POCT U COLOR (test code = 3266) . POCT U APPEAR (test code = 3267) [facility] URINALYSIS W SPECIFIC [id number] 21:32:00* Test Item Value Reference Range Interpretation Comme nts POCT U SP GRAV (test code = 3255) . 1.005-1.025 POCT PH U (test code = 3254) . 5-8 POCT U LEUK EST (test code = 3263) . Negative - N egative POCT U NIT (test code = 3262) . Negative - Negati ve POCT U PROT (test code = 3259) trace Negative - Negat kailee POCT U GLU (test code = 3256) neg Negative - Negati ve POCT U KETONE (test code = 3258) . Negative - Neg ative POCT U UROBILI (test code = 3260) . 0.2-1 POCT U BILI (test code = 3261) . Negative - Negat kailee POCT U BLD (test code = 3257) . Negative - Negati ve POCT U COLOR (test code = 3266) POCT U APPEAR (test code = 3267) [facility] URINALYSIS W SPECIFIC [id number] 13:13:00* Test Item Value Reference Range Interpretation Comme nts POCT U SP GRAV (test code = 3255) . 1.005-1.025 POCT PH U (test code = 3254) . 5-8 POCT U LEUK EST (test code = 3263) . Negative - N egative POCT U NIT (test code = 3262) . Negative - Negati ve POCT U PROT (test code = 3259) . Negative - Negat kailee POCT U GLU (test code = 3256) trace Negative - Negati ve POCT U KETONE (test code = 3258) neg Negative - Neg ative POCT U UROBILI (test code = 3260) . 0.2-1 POCT U BILI (test code = 3261) . Negative - Negat kailee POCT U BLD (test code = 3257) . Negative - Negati ve POCT U COLOR (test code = 3266) POCT U APPEAR (test code = 3267) [facility] URINALYSIS W SPECIFIC [id number] 13:51:00* Test Item Value Reference Range Interpretation Comme nts POCT U SP GRAV (test code = 3255) N/A 1.005-1.025 POCT PH U (test code = 3254) 6 mg/dl 5-8 POCT U LEUK EST (test code = 3263) TRACE Negative - Negative POCT U NIT (test code = 3262) - Negative - Negati ve POCT U PROT (test code = 3259) TRACE Negative - Negat kailee POCT U GLU (test code = 3256) - Negative - Negati ve POCT U KETONE (test code = 3258) - Negative - Neg ative POCT U UROBILI (test code = 3260) N/A 0.2-1 POCT U BILI (test code = 3261) N/A Negative - Negat kailee POCT U BLD (test code = 3257) - Negative - Negati ve POCT U COLOR (test code = 3266) YELLOW POCT U APPEAR (test code = 3267) CLEAR Lab Interpretation (test cod e = 99801-7) [facility]normal [facility] W SPECIFIC [id number] 13:21:00* Test Item Value Reference Range Interpretation Comme nts POCT U SP GRAV (test code = 3255) . 1.005-1.025 POCT PH U (test code = 3254) . 5-8 POCT U LEUK EST (test code = 3263) . Negative - N egative POCT U NIT (test code = 3262) . Negative - Negati ve POCT U PROT (test code = 3259) trace Negative - Negat kailee POCT U GLU (test code = 3256) neg Negative - Negati ve POCT U KETONE (test code = 3258) . Negative - Neg ative POCT U UROBILI (test code = 3260) . 0.2-1 POCT U BILI (test code = 3261) . Negative - Negat kailee POCT U BLD (test code = 3257) . Negative - Negati ve POCT U COLOR (test code = 3266) . POCT U APPEAR (test code = 3267) . [facility]3 HR GLUCOSE TOLERANCE [id number] 05:12:20 * Test Item Value Reference Range Interpretation Comme nts GLUC 3 HR (test code = 9788918311) 60 mg/dL 70-110 L Lab Interpretation (test cod e = 29269-0) Abnormal [facility] CenterRUBELLA SCREEN (LAUREL) [id number] 17:09:20 * Test Item Value Reference Range Interpretation Comme [facility] Rubella screen IgG (test code = 3492334237) Positive Negative BERTHA (test code = BERTHA) Positive - Indicat es the patient was exposed to Rubella through infection or vaccination.Negative - Indicates the patient could be susceptible to Rubella infection.Equivocal - A second specimen should be sent. [facility] CenterVZV ANTIBODY [id number] 17:09:20* Test Item Value Reference Range Interpretation Comme [facility] VZV IgG antibody (test code = 25747-3) Positive Negative BERTHA (test code = BERTHA) Positive - Indicat es the patient was exposed to VZV through infection or vaccination.Negative - Indicates the patient could be susceptible to VZV infection.Equivocal - A second specimen should be sent for testing. [facility] CenterGALV ONLY - SYPHILIS [id number] 16:18:36* Test Item Value Reference Range Interpretation Comme [facility] Syphilis IgG/IgM (test code = 32694-1) Non-reactive Non-reactive BERTHA (test code = BERTHA) Non-reactive - No serologic evidence of T. pallidum infection. Cannot exclude incubating or early syphilis. Submit a second specimen in 2-4 weeks if syphilis is clinically suspected. Equivocal - Further testing to follow. Reactive - Further testing to follow. Lab Interpretation (test code = 27631-7) Normal [facility]HIV [facility]2 AG-AB WITH [id number] 05:48:31* Test Item Value Reference Range Interpretation Comme [facility] HIV Semi-quantitative (test code = 69742-6) 0.08 Negative BERTHA (test code = BERTHA) Non-reactive for HIV-1 antigen and HIV-1/HIV-2 antibodies. ?No laboratory evidence of HIV infection. ?Repeat in 2-4 weeks if acute HIV infection is suspected. [facility] CenterHEPATITIS B SURFACE [id number] 04:41:21 * Test Item Value Reference Range Interpretation Comme [facility] HBsAg Semi-Quantitative (amrik t code = 5195-3) 0.[address] [facility] CenterCBC WITH [id number] 03:13:36* Test Item Value Reference Range Interpretation Comme nts WBC (test code = 6690-2) 10.45 4.30-11.10 RBC (test code = 789-8) 4.55 3.93-5.25 HGB (test code = 718-7) 10.7 g/dL 11.6-15.0 L HCT (test code = 4544-3) 34.0 % 35.7-45.2 L MCV (test code = 787-2) 74.7 fL 80.6-95.5 L MCH (test code = 785-6) 23.5 pg 25.9-32.8 L MCHC (test code = 786-4) 31.5 g/dL 31.6-35.1 L RDW-SD (test code = 88388-2) 44.1 fL 39.0-49.9 RDW-CV (test code = 788-0) 16.3 % 12.0-15.5 H PLT (test code = 777-3) 270 166-358 MPV (test code = 22013-0) 11.7 fL 9.5-12.9 NRBC/100 WBC (test code = 9341440569) 0.0 0.0-10.0 NRBC x10^3 (test code = 2999034147) See_Comment [Automated messa ge] The system which generated this result transmitted reference range: 10*3/?L. The reference range was not used to interpret this result as normal/abnormal. GRAN MAT (NEUT) % (test code = 770-8) 75.6 % IMM GRAN % (test code = 5311843571) 0.40 % LYMPH % (test code = 736-9) 16.9 % MONO % (test code = 5905-5) 5.7 % EOS % (test code = 713-8) 1.1 % BASO % (test code = 706-2) 0.3 % GRAN MAT x10^3(ANC) (test code = 0274943263) 7.89 10*3/uL 1.88-7.09 H IMM GRAN x10^3 (test code = 4992259162) 0.04 10*3/uL 0.00-0.06 LYMPH x10^3 (test code = 731-0) 1.77 10*3/uL 1.32-3.29 MONO x10^3 (test code = 742-7) 0.60 10*3/uL 0.33-0.92 EOS x10^3 (test code = 711-2) 0.12 10*3/uL 0.03-0.39 BASO x10^3 (test code = 704-7) 0.03 10*3/uL 0.01-0.07 Lab Interpretation (test code = 41257-5) Abnormal [facility] CenterPRENATAL WORKUP, BLOOD [id number] 15:04:00 * Test Item Value Reference Range Interpretation Comme nts ABO & RH (test code = 20) O POSITIVE IAT (test code = 1185) Negative [facility] with [id number] 09:25:54* Test Item Value Reference Range Interpretation Comme nts WBC (test code = 6690-2) 17.53 See_Comment H [Automated message] The system which generated this result transmitted reference range: 4.30 - 11.10 10*3/?L. The reference range was not used to interpret this result as normal/abnormal. RBC (test code = 789-8) 3.30 See_Comment L [Automated message] The system which generated this result transmitted reference range: 3.93 - 5.25 10*6/?L. The reference range was not used to interpret this result as normal/abnormal. HGB (test code = 718-7) 8.0 g/dL 11.6-15.0 L HCT (test code = 4544-3) 26.2 % 35.7-45.2 L MCV (test code = 787-2) 79.4 fL 80.6-95.5 L MCH (test code = 785-6) 24.2 pg 25.9-32.8 L MCHC (test code = 786-4) 30.5 g/dL 31.6-35.1 L RDW-SD (test code = 24098-6) 44.5 fL 39.0-49.9 RDW-CV (test code = 788-0) 15.8 % 12.0-15.5 H PLT (test code = 777-3) 201 See_Comment [Automated message] The system which generated this result transmitted reference range: 166 - 358 10*3/?L. The reference range was not used to interpret this result as normal/abnormal. MPV (test code = 91053-6) 11.5 fL 9.5-12.9 NRBC/100 WBC (test code = 8562997702) 0.0 See_Comment [Automated message] The system which generated this result transmitted reference range: 0.0 - 10.0 /100 WBCs. The reference range was not used to interpret this result as normal/abnormal. NRBC x10^3 (test code = 8202322830) See_Comment [Automated message] The system which generated this result transmitted reference range: 10*3/?L. The reference range was not used to interpret this result as normal/abnormal. GRAN MAT (NEUT) % (test code = 770-8) 77.5 % IMM GRAN % (test code = 1252514897) 0.60 % LYMPH % (test code = 736-9) 15.1 % MONO % (test code = 5905-5) 5.8 % EOS % (test code = 713-8) 0.7 % BASO % (test code = 706-2) 0.3 % GRAN MAT x10^3(ANC) (test code = 9414732278) 13.59 10*3/uL 1.88-7.09 H IMM GRAN x10^3 (test code = 1354901813) 0.11 10*3/uL 0.00-0.06 H LYMPH x10^3 (test code = 731-0) 2.65 10*3/uL 1.32-3.29 MONO x10^3 (test code = 742-7) 1.01 10*3/uL 0.33-0.92 H EOS x10^3 (test code = 711-2) 0.12 10*3/uL 0.03-0.39 BASO x10^3 (test code = 704-7) 0.05 10*3/uL 0.01-0.07 Lab Interpretation (test code = 88345-5) [facility]normal [facility] IMMUNE [id number] 08:35:11* Test Item Value Reference Range Interpretation Comme nts RHIG CANDIDATE? (test code = 5188) No- see comment Patient is not a candidate for RhIg- Patient is Rh Positive.Performed at [facility] Laboratory Services - [facility] Blood [address] [place] [id number] Free: [phone] No. [id number] [facility] CenterVen[facility] Cord Zsg2003-05-77 06:03:31* Test Item Value Reference Range Interpretation Comme nts VENOUS BASE EXCESS, CORD (test code = 3492883092) -4.2 mEq/L VENOUS PH, CORD (test code = 8435988337) 7.38 7.25-7.45 VENOUS PC02, CORD (test code = 4179890763) 35 See_Comment [Automated messa ge] The system which generated this result transmitted reference range: 27 - 49 mmHg. The reference range was not used to interpret this result as normal/abnormal. VENOUS PO2, CORD (test code = 9350210508) 26 See_Comment [Automated me ssage] The system which generated this result transmitted reference range: 17 - 41 mmHg. The reference range was not used to interpret this result as normal/abnormal. VENOUS BICARBONATE, CORD (test code = 6302727223) 20 See_Comment [Automated messa ge] The system which generated this result transmitted reference range: 12 - 29 mEq/L. The reference range was not used to interpret this result as normal/abnormal. [facility] CenterAr[facility] Cord [id number] 06:02:56* Test Item Value Reference Range Interpretation Comme nts BASE EXCESS, CORD (test code = 3147966604) -4.1 mEq/L QUES AC PH, CORD (BEAKER) (test code = 5036749798) 7.31 7.18-7.38 PC02, CORD (test code = 7025098275) 46 See_Comment [Automated messa ge] The system which generated this result transmitted reference range: 32 - 66 mmHg. The reference range was not used to interpret this result as normal/abnormal. PO2, CORD (test code = 8274450887) 12 See_Comment [Automated messa ge] The system which generated this result transmitted reference range: 10 - 30 mmHg. The reference range was not used to interpret this result as normal/abnormal. BICARBONATE, CORD (test code = 3885625755) 22 See_Comment [Automated messa ge] The system which generated this result transmitted reference range: 17 - 27 mEq/L. The reference range was not used to interpret this result as normal/abnormal. [facility] CenterGAL ONLY - SYPHILIS [id number] 15:37:09* Test Item Value Reference Range Interpretation Comme nts Syphilis IgG/IgM (test code = 93905-3) Non-reactive Non-reactive BERTHA (test code = BERTHA) Non-reactive - No serologic evidence of T. pallidum infection. Cannot exclude incubating or early syphilis. Submit a second specimen in 2-4 weeks if syphilis is clinically suspected. Equivocal - Further testing to follow. Reactive - Further testing to follow. Lab Interpretation (test code = 78704-1) Normal [facility] CenterHepatitis B Surface [id number] 01:11:06 * Test Item Value Reference Range Interpretation Comme nts HBsAg Semi-Quantitative (amrik t code = 5195-3) 0.[address] [facility] CenterType and Screen - ONCE [id number] 23:17:00 * Test Item Value Reference Range Interpretation Comme nts ABO & RH (test code = 20) O POSITIVE IAT (test code = 1185) Negative [facility] CenterPONJ URINALYSIS W SPECIFIC [id number] 19:09:00* Test Item Value Reference Range Interpretation Comme nts POCT U SP GRAV (test code = 3255) . 1.005-1.025 POCT PH U (test code = 3254) . 5-8 POCT U LEUK EST (test code = 3263) . Negative - N egative POCT U NIT (test code = 3262) . Negative - Negati ve POCT U PROT (test code = 3259) trace Negative - Negat kailee POCT U GLU (test code = 3256) neg Negative - Negati ve POCT U KETONE (test code = 3258) . Negative - Neg ative POCT U UROBILI (test code = 3260) . 0.2-1 POCT U BILI (test code = 3261) . Negative - Negat kailee POCT U BLD (test code = 3257) . Negative - Negati ve POCT U COLOR (test code = 3266) . POCT U APPEAR (test code = 3267) . [facility] CenterPONJ URINALYS[facility] W SPECIFIC [id number] 16:02:00* Test Item Value Reference Range Interpretation Comme nts POCT U SP GRAV (test code = 3255) . 1.005-1.025 POCT PH U (test code = 3254) . 5-8 POCT U LEUK EST (test code = 3263) . Negative - N egative POCT U NIT (test code = 3262) . Negative - Negati ve POCT U PROT (test code = 3259) trace Negative - Negat kailee POCT U GLU (test code = 3256) neg Negative - Negati ve POCT U KETONE (test code = 3258) . Negative - Neg ative POCT U UROBILI (test code = 3260) . 0.2-1 POCT U BILI (test code = 3261) . Negative - Negat kailee POCT U BLD (test code = 3257) . Negative - Negati ve POCT U COLOR (test code = 3266) . POCT U APPEAR (test code = 3267) . [facility] URINALYSIS W SPECIFIC [id number] 20:42:00* Test Item Value Reference Range Interpretation Comme nts POCT U SP GRAV (test code = 3255) . 1.005-1.025 POCT PH U (test code = 3254) . 5-8 POCT U LEUK EST (test code = 3263) . Negative - N egative POCT U NIT (test code = 3262) . Negative - Negati ve POCT U PROT (test code = 3259) trace Negative - Negat kailee POCT U GLU (test code = 3256) neg Negative - Negati ve POCT U KETONE (test code = 3258) . Negative - Neg ative POCT U UROBILI (test code = 3260) . 0.2-1 POCT U BILI (test code = 3261) . Negative - Negat kailee POCT U BLD (test code = 3257) . Negative - Negati ve POCT U COLOR (test code = 3266) . POCT U APPEAR (test code = 3267) . [facility] URINALYSIS W SPECIFIC [id number] 18:01:00* Test Item Value Reference Range Interpretation Comme nts POCT U SP GRAV (test code = 3255) . 1.005-1.025 POCT PH U (test code = 3254) . 5-8 POCT U LEUK EST (test code = 3263) . Negative - N egative POCT U NIT (test code = 3262) . Negative - Negati ve POCT U PROT (test code = 3259) trace Negative - Negat kailee POCT U GLU (test code = 3256) neg Negative - Negati ve POCT U KETONE (test code = 3258) . Negative - Neg ative POCT U UROBILI (test code = 3260) . 0.2-1 POCT U BILI (test code = 3261) . Negative - Negat kailee POCT U BLD (test code = 3257) . Negative - Negati ve POCT U COLOR (test code = 3266) POCT U APPEAR (test code = 3267) [facility] URINALYSIS W SPECIFIC [id number] 18:01:00* Test Item Value Reference Range Interpretation Comme nts POCT U SP GRAV (test code = 3255) . 1.005-1.025 POCT PH U (test code = 3254) . 5-8 POCT U LEUK EST (test code = 3263) . Negative - N egative POCT U NIT (test code = 3262) . Negative - Negati ve POCT U PROT (test code = 3259) trace Negative - Negat kailee POCT U GLU (test code = 3256) neg Negative - Negati ve POCT U KETONE (test code = 3258) . Negative - Neg ative POCT U UROBILI (test code = 3260) . 0.2-1 POCT U BILI (test code = 3261) . Negative - Negat kailee POCT U BLD (test code = 3257) . Negative - Negati ve POCT U COLOR (test code = 3266) POCT U APPEAR (test code = 3267) [facility] URINALYSIS W SPECIFIC [id number] 18:01:00* Test Item Value Reference Range Interpretation Comme nts POCT U SP GRAV (test code = 3255) . 1.005-1.025 POCT PH U (test code = 3254) . 5-8 POCT U LEUK EST (test code = 3263) . Negative - N egative POCT U NIT (test code = 3262) . Negative - Negati ve POCT U PROT (test code = 3259) trace Negative - Negat kailee POCT U GLU (test code = 3256) neg Negative - Negati ve POCT U KETONE (test code = 3258) . Negative - Neg ative POCT U UROBILI (test code = 3260) . 0.2-1 POCT U BILI (test code = 3261) . Negative - Negat kailee POCT U BLD (test code = 3257) . Negative - Negati ve POCT U COLOR (test code = 3266) POCT U APPEAR (test code = 3267) [facility] URINALYSIS W SPECIFIC [id number] 16:11:00* Test Item Value Reference Range Interpretation Comme nts POCT U SP GRAV (test code = 3255) . 1.005-1.025 POCT PH U (test code = 3254) . 5-8 POCT U LEUK EST (test code = 3263) . Negative - N egative POCT U NIT (test code = 3262) . Negative - Negati ve POCT U PROT (test code = 3259) trace Negative - Negat kailee POCT U GLU (test code = 3256) neg Negative - Negati ve POCT U KETONE (test code = 3258) . Negative - Neg ative POCT U UROBILI (test code = 3260) . 0.2-1 POCT U BILI (test code = 3261) . Negative - Negat kailee POCT U BLD (test code = 3257) . Negative - Negati ve POCT U COLOR (test code = 3266) . POCT U APPEAR (test code = 3267) . [facility] URINALYSIS W SPECIFIC [id number] 16:11:00* Test Item Value Reference Range Interpretation Comme nts POCT U SP GRAV (test code = 3255) . 1.005-1.025 POCT PH U (test code = 3254) . 5-8 POCT U LEUK EST (test code = 3263) . Negative - N egative POCT U NIT (test code = 3262) . Negative - Negati ve POCT U PROT (test code = 3259) trace Negative - Negat kailee POCT U GLU (test code = 3256) neg Negative - Negati ve POCT U KETONE (test code = 3258) . Negative - Neg ative POCT U UROBILI (test code = 3260) . 0.2-1 POCT U BILI (test code = 3261) . Negative - Negat kailee POCT U BLD (test code = 3257) . Negative - Negati ve POCT U COLOR (test code = 3266) . POCT U APPEAR (test code = 3267) . [facility] URINALYSIS W SPECIFIC [id number] 16:11:00* Test Item Value Reference Range Interpretation Comme nts POCT U SP GRAV (test code = 3255) . 1.005-1.025 POCT PH U (test code = 3254) . 5-8 POCT U LEUK EST (test code = 3263) . Negative - N egative POCT U NIT (test code = 3262) . Negative - Negati ve POCT U PROT (test code = 3259) trace Negative - Negat kailee POCT U GLU (test code = 3256) neg Negative - Negati ve POCT U KETONE (test code = 3258) . Negative - Neg ative POCT U UROBILI (test code = 3260) . 0.2-1 POCT U BILI (test code = 3261) . Negative - Negat kailee POCT U BLD (test code = 3257) . Negative - Negati ve POCT U COLOR (test code = 3266) . POCT U APPEAR (test code = 3267) . [facility] URINALYSIS W SPECIFIC [id number] 20:05:00* Test Item Value Reference Range Interpretation Comme nts POCT U SP GRAV (test code = 3255) . 1.005-1.025 POCT PH U (test code = 3254) . 5-8 POCT U LEUK EST (test code = 3263) . Negative - Negative POCT U NIT (test code = 3262) . Negative - Negati ve POCT U PROT (test code = 3259) 1+ Negative - Negat kailee POCT U GLU (test code = 3256) negative Negative - Negati ve POCT U KETONE (test code = 3258) . Negative - Neg ative POCT U UROBILI (test code = 3260) . 0.2-1 POCT U BILI (test code = 3261) . Negative - Negat kailee POCT U BLD (test code = 3257) . Negative - Negati ve POCT U COLOR (test code = 3266) . POCT U APPEAR (test code = 3267) . [facility] URINALYSIS W SPECIFIC [id number] 14:24:00* Test Item Value Reference Range Interpretation Comme nts POCT U SP GRAV (test code = 3255) . 1.005-1.025 POCT PH U (test code = 3254) . 5-8 POCT U LEUK EST (test code = 3263) . Negative - N egative POCT U NIT (test code = 3262) . Negative - Negati ve POCT U PROT (test code = 3259) trace Negative - Negat kailee POCT U GLU (test code = 3256) neg Negative - Negati ve POCT U KETONE (test code = 3258) . Negative - Neg ative POCT U UROBILI (test code = 3260) . 0.2-1 POCT U BILI (test code = 3261) . Negative - Negat kailee POCT U BLD (test code = 3257) . Negative - Negati ve POCT U COLOR (test code = 3266) . POCT U APPEAR (test code = 3267) . [facility] SPECIFIC [id number] 15:44:00* Test Item Value Reference Range Interpretation Comme nts POCT U SP GRAV (test code = 3255) . 1.005-1.025 POCT PH U (test code = 3254) . 5-8 POCT U LEUK EST (test code = 3263) . Negative - Negative POCT U NIT (test code = 3262) . Negative - Negati ve POCT U PROT (test code = 3259) trace Negative - Negat kailee POCT U GLU (test code = 3256) negative Negative - Negati ve POCT U KETONE (test code = 3258) . Negative - Neg ative POCT U UROBILI (test code = 3260) . 0.2-1 POCT U BILI (test code = 3261) . Negative - Negat kailee POCT U BLD (test code = 3257) . Negative - Negati ve POCT U COLOR (test code = 3266) . POCT U APPEAR (test code = 3267) . [facility] CenterGlucose 1 Hour Post [id number] 05:14:49* Test Item Value Reference Range Interpretation Comme nts GLUC 1 HR (test code = 2185865081) 116 mg/dL 120-170 L Lab Interpretation (test cod e = 69401-5) Abnormal [facility] CenterCB with [id number] 04:49:07* Test Item Value Reference Range Interpretation Comme nts WBC (test code = 6690-2) 12.96 See_Comment H [Automated message] The system which generated this result transmitted reference range: 4.30 - 11.10 10*3/?L. The reference range was not used to interpret this result as normal/abnormal. RBC (test code = 789-8) 3.81 See_Comment L [Automated message] The system which generated this result transmitted reference range: 3.93 - 5.25 10*6/?L. The reference range was not used to interpret this result as normal/abnormal. HGB (test code = 718-7) 10.6 g/dL 11.6-15.0 L HCT (test code = 4544-3) 33.2 % 35.7-45.2 L MCV (test code = 787-2) 87.1 fL 80.6-95.5 MCH (test code = 785-6) 27.8 pg 25.9-32.8 MCHC (test code = 786-4) 31.9 g/dL 31.6-35.1 RDW-SD (test code = 48543-8) 42.9 fL 39.0-49.9 RDW-CV (test code = 788-0) 13.6 % 12.0-15.5 PLT (test code = 777-3) 212 See_Comment [Automated message] The system which generated this result transmitted reference range: 166 - 358 10*3/?L. The reference range was not used to interpret this result as normal/abnormal. MPV (test code = 90324-4) 11.7 fL 9.5-12.9 NRBC/100 WBC (test code = 7383272387) 0.0 See_Comment [Automated message] The system which generated this result transmitted reference range: 0.0 - 10.0 /100 WBCs. The reference range was not used to interpret this result as normal/abnormal. NRBC x10^3 (test code = 7795786080) See_Comment [Automated message] The system which generated this result transmitted reference range: 10*3/?L. The reference range was not used to interpret this result as normal/abnormal. GRAN MAT (NEUT) % (test code = 770-8) 78.3 % IMM GRAN % (test code = 4087784389) 0.60 % LYMPH % (test code = 736-9) 14.7 % MONO % (test code = 5905-5) 5.4 % EOS % (test code = 713-8) 0.8 % BASO % (test code = 706-2) 0.2 % GRAN MAT x10^3(ANC) (test code = 3076268615) 10.15 10*3/uL 1.88-7.09 H IMM GRAN x10^3 (test code = 0677031177) 0.08 10*3/uL 0.00-0.06 H LYMPH x10^3 (test code = 731-0) 1.90 10*3/uL 1.32-3.29 MONO x10^3 (test code = 742-7) 0.70 10*3/uL 0.33-0.92 EOS x10^3 (test code = 711-2) 0.10 10*3/uL 0.03-0.39 BASO x10^3 (test code = 704-7) 0.03 10*3/uL 0.01-0.07 Lab Interpretation (test code = 83112-7) Abnormal [facility] URINALYSIS W SPECIFIC [id number] 14:23:00* Test Item Value Reference Range Interpretation Comme nts POCT U SP GRAV (test code = 3255) . 1.005-1.025 POCT PH U (test code = 3254) . 5-8 POCT U LEUK EST (test code = 3263) . Negative - N egative POCT U NIT (test code = 3262) . Negative - Negati ve POCT U PROT (test code = 3259) trace Negative - Negat kailee POCT U GLU (test code = 3256) neg Negative - Negati ve POCT U KETONE (test code = 3258) . Negative - Neg ative POCT U UROBILI (test code = 3260) . 0.2-1 POCT U BILI (test code = 3261) . Negative - Negat kailee POCT U BLD (test code = 3257) . Negative - Negati ve POCT U COLOR (test code = 3266) . POCT U APPEAR (test code = 3267) . [facility] URINALYSIS W SPECIFIC [id number] 14:24:00* Test Item Value Reference Range Interpretation Comme nts POCT U SP GRAV (test code = 3255) . 1.005-1.025 POCT PH U (test code = 3254) . 5-8 POCT U LEUK EST (test code = 3263) . Negative - N egative POCT U NIT (test code = 3262) . Negative - Negati ve POCT U PROT (test code = 3259) TRACE Negative - Negat kailee POCT U GLU (test code = 3256) NEG Negative - Negati ve POCT U KETONE (test code = 3258) . Negative - Neg ative POCT U UROBILI (test code = 3260) . 0.2-1 POCT U BILI (test code = 3261) . Negative - Negat kailee POCT U BLD (test code = 3257) . Negative - Negati ve POCT U COLOR (test code = 3266) . POCT U APPEAR (test code = 3267) . [facility] URINALYSIS W SPECIFIC [id number] 15:42:00* Test Item Value Reference Range Interpretation Comme nts POCT U SP GRAV (test code = 3255) . 1.005-1.025 POCT PH U (test code = 3254) . 5-8 POCT U LEUK EST (test code = 3263) . Negative - N egative POCT U NIT (test code = 3262) . Negative - Negati ve POCT U PROT (test code = 3259) trace Negative - Negat kailee POCT U GLU (test code = 3256) neg Negative - Negati ve POCT U KETONE (test code = 3258) . Negative - Neg ative POCT U UROBILI (test code = 3260) . 0.2-1 POCT U BILI (test code = 3261) . Negative - Negat kailee POCT U BLD (test code = 3257) . Negative - Negati ve POCT U COLOR (test code = 3266) . POCT U APPEAR (test code = 3267) . [facility] URINALYSIS W SPECIFIC [id number] 14:04:00* Test Item Value Reference Range Interpretation Comme nts POCT U SP GRAV (test code = 3255) . 1.005-1.025 POCT PH U (test code = 3254) . 5-8 POCT U LEUK EST (test code = 3263) . Negative - N egative POCT U NIT (test code = 3262) . Negative - Negati ve POCT U PROT (test code = 3259) trace Negative - Negat kailee POCT U GLU (test code = 3256) neg Negative - Negati ve POCT U KETONE (test code = 3258) . Negative - Neg ative POCT U UROBILI (test code = 3260) . 0.2-1 POCT U BILI (test code = 3261) . Negative - Negat kailee POCT U BLD (test code = 3257) . Negative - Negati ve POCT U COLOR (test code = 3266) . POCT U APPEAR (test code = 3267) . [facility] URINALYSIS W SPECIFIC [id number] 14:04:00* Test Item Value Reference Range Interpretation Comme nts POCT U SP GRAV (test code = 3255) . 1.005-1.025 POCT PH U (test code = 3254) . 5-8 POCT U LEUK EST (test code = 3263) . Negative - N egative POCT U NIT (test code = 3262) . Negative - Negati ve POCT U PROT (test code = 3259) trace Negative - Negat kailee POCT U GLU (test code = 3256) neg Negative - Negati ve POCT U KETONE (test code = 3258) . Negative - Neg ative POCT U UROBILI (test code = 3260) . 0.2-1 POCT U BILI (test code = 3261) . Negative - Negat kailee POCT U BLD (test code = 3257) . Negative - Negati ve POCT U COLOR (test code = 3266) . POCT U APPEAR (test code = 3267) . [facility] URINALYSIS W SPECIFIC [id number] 14:42:00* Test Item Value Reference Range Interpretation Comme nts POCT U SP GRAV (test code = 3255) . 1.005-1.025 POCT PH U (test code = 3254) 5 mg/dl 5-8 POCT U LEUK EST (test code = 3263) 1+ Negative - Negative POCT U NIT (test code = 3262) Neg Negative - Negati ve POCT U PROT (test code = 3259) 1+ Negative - Negat kailee POCT U GLU (test code = 3256) Neg Negative - Negati ve POCT U KETONE (test code = 3258) None Negative - Neg ative POCT U UROBILI (test code = 3260) . 0.2-1 POCT U BILI (test code = 3261) . Negative - Negat kailee POCT U BLD (test code = 3257) Trace Negative - Negati ve POCT U COLOR (test code = 3266) . POCT U APPEAR (test code = 3267) [facility] [id number] 14:42:00* Test Item Value Reference Range Interpretation Comme nts POCT U SP GRAV (test code = 3255) . 1.005-1.025 POCT PH U (test code = 3254) 5 mg/dl 5-8 POCT U LEUK EST (test code = 3263) 1+ Negative - Negative POCT U NIT (test code = 3262) Neg Negative - Negati ve POCT U PROT (test code = 3259) 1+ Negative - Negat kailee POCT U GLU (test code = 3256) Neg Negative - Negati ve POCT U KETONE (test code = 3258) None Negative - Neg ative POCT U UROBILI (test code = 3260) . 0.2-1 POCT U BILI (test code = 3261) . Negative - Negat kailee POCT U BLD (test code = 3257) Trace Negative - Negati ve POCT U COLOR (test code = 3266) . POCT U APPEAR (test code = 3267) [facility] CenterRUBELLA SCREEN (LAUREL) [id number] 17:47:22 * Test Item Value Reference Range Interpretation Comme nts Rubella screen IgG (test code = 9964369509) Positive Negative BERTHA (test code = BERTHA) Positive - Indicat es the patient was exposed to Rubella through infection or vaccination.Negative - Indicates the patient could be susceptible to Rubella infection.Equivocal - A second specimen should be sent. [facility] CenterVZV ANTIBODY [id number] 17:47:22* Test Item Value Reference Range Interpretation Comme nts VZV IgG antibody (test code = 37425-4) Positive Negative BERTHA (test code = BERTHA) Positive - Indicat es the patient was exposed to VZV through infection or vaccination.Negative - Indicates the patient could be susceptible to VZV infection.Equivocal - A second specimen should be sent for testing. [facility]GAL [facility] - SYPHILIS [id number] 15:50:43* Test Item Value Reference Range Interpretation Comme [facility] Syphilis IgG/IgM (test code = 91600-2) Non-reactive Non-reactive BERTHA (test code = BERTHA) Non-reactive - No serologic evidence of T. pallidum infection. Cannot exclude incubating or early syphilis. Submit a second specimen in 2-4 weeks if syphilis is clinically suspected. Equivocal - Further testing to follow. Reactive - Further testing to follow. Lab Interpretation (test code = 60169-5) Normal [facility] 1/2 AG-AB WITH [id number] 06:28:22* Test Item Value Reference Range Interpretation Comme [facility] HIV Semi-quantitative (test code = 13077-2) 0.14 Negative BERTHA (test code = BERTHA) Non-reactive for HIV-1 antigen and HIV-1/HIV-2 antibodies. ?No laboratory evidence of HIV infection. ?Repeat in 2-4 weeks if acute HIV infection is suspected. [facility] CenterHEPATITIS B SURFACE [id number] 05:26:00 * Test Item Value Reference Range Interpretation Comme [facility] HBsAg Semi-Quantitative (amrik t code = 5195-3) 0.[address] [facility] CenterGLUCOSE 1 HOUR POST [id number] 05:05:51* Test Item Value Reference Range Interpretation Comme nts GLUC 1 HR (test code = 2142334364) 70 mg/dL 120-170 L Lab Interpretation (test cod e = 98636-6) Abnormal [facility] WITH [id number] 05:03:54* Test Item Value Reference Range Interpretation Comme nts WBC (test code = 6690-2) 14.10 See_Comment H [Automated message] The system which generated this result transmitted reference range: 4.30 - 11.10 10*3/?L. The reference range was not used to interpret this result as normal/abnormal. RBC (test code = 789-8) 4.68 See_Comment [Automated message] The system which generated this result transmitted reference range: 3.93 - 5.25 10*6/?L. The reference range was not used to interpret this result as normal/abnormal. HGB (test code = 718-7) 13.0 g/dL 11.6-15.0 HCT (test code = 4544-3) 38.7 % 35.7-45.2 MCV (test code = 787-2) 82.7 fL 80.6-95.5 MCH (test code = 785-6) 27.8 pg 25.9-32.8 MCHC (test code = 786-4) 33.6 g/dL 31.6-35.1 RDW-SD (test code = 83291-3) 39.1 fL 39.0-49.9 RDW-CV (test code = 788-0) 13.0 % 12.0-15.5 PLT (test code = 777-3) 218 See_Comment [Automated message] The system which generated this result transmitted reference range: 166 - 358 10*3/?L. The reference range was not used to interpret this result as normal/abnormal. MPV (test code = 01298-8) 11.3 fL 9.5-12.9 NRBC/100 WBC (test code = 8033689384) 0.0 See_Comment [Automated message] The system which generated this result transmitted reference range: 0.0 - 10.0 /100 WBCs. The reference range was not used to interpret this result as normal/abnormal. NRBC x10^3 (test code = 6866760462) See_Comment [Automated message] The system which generated this result transmitted reference range: 10*3/?L. The reference range was not used to interpret this result as normal/abnormal. GRAN MAT (NEUT) % (test code = 770-8) 79.5 % IMM GRAN % (test code = 3079237785) 0.40 % LYMPH % (test code = 736-9) 13.1 % MONO % (test code = 5905-5) 5.4 % EOS % (test code = 713-8) 1.1 % BASO % (test code = 706-2) 0.5 % GRAN MAT x10^3(ANC) (test code = 7864307922) 11.20 10*3/uL 1.88-7.09 H IMM GRAN x10^3 (test code = 4822656627) 0.06 10*3/uL 0.00-0.06 LYMPH x10^3 (test code = 731-0) 1.85 10*3/uL 1.32-3.29 MONO x10^3 (test code = 742-7) 0.76 10*3/uL 0.33-0.92 EOS x10^3 (test code = 711-2) 0.16 10*3/uL 0.03-0.39 BASO x10^3 (test code = 704-7) 0.07 10*3/uL 0.01-0.07 Lab Interpretation (test code = 30471-4) [facility]normal [facility] CenterPRENATAL WORKUP, BLOOD [id number] 15:14:00 * Test Item Value Reference Range Interpretation Comme nts ABO & RH (test code = 20) O POSITIVE IAT (test code = 1185) Negative [facility] [id number] 13:41:00* Test Item Value Reference Range Interpretation Comme nts POCT PREG (test code = 1605) Positive On board controls acceptable with C Line (test code = 3574) Yes POCT PREG LOT # (test code = 3575) POCT PREG TEST DATE ( test code = 3576) [facility] URINALYSIS W/O SPECIFIC [id number] 13:39:00* Test Item Value Reference Range Interpretation Comme nts POCT PH U (test code = 3254) 6 mg/dl 5-8 POCT U LEUK EST (test code = 3263) small Negative - Negative POCT U NIT (test code = 3262) negative Negative - Negati ve POCT U PROT (test code = 3259) trace Negative - Negat kailee POCT U GLU (test code = 3256) negative Negative - Negati ve POCT U KETONE (test code = 3258) negative Negative - Neg ative POCT U BLD (test code = 3257) negative Negative - Negati ve [facility] History and Physical Notes Date/Time Note Provider Source 2023-12-20 15:29:59 TRIAGE HISTORY & PHYSICAL IDENTIFYING DATA Krystle Henry is 23 year old, /White, 39w0d, female with MACKENZIE 12/27/2023, by Last Menstrual Period. : 2000 Primary Care Physician: Izabela Soliman CHIEF COMPLAINT Scheduled induction of labor HISTORY OF PRESENT ILLNESS The patient presents for elective induction of labor. She understands induction, the risks and benefits and desires to proceed. +FM. No VB, LOF, or CTX. No pre-eclampsia sx or other complaints. PAST OBSTETRIC HISTORY OB History Para Term AB Living 2 1 1 1 SAB IAB Ectopic Multiple Live Births 0 1 # Outcome Date GA Lbr Ruel/2nd Weight Sex Type Anes PTL Lv 2 Current 1 Term 11/28/22 39w2d 3790 g M NORMAL SPONT EPI REKHA PAST MEDICAL HISTORY Problem list: Patient Active Problem List Diagnosis Date Noted 39 weeks gestation of 12/20/2023 Indication for care in labor or delivery-IOL 12/20/2023 Anemia of mother in , antepartum 12/07/2023 Short interval between pregnancies affecting , antepartum 05/13/2023 Glucose tolerance test abnormal 05/13/2023 Supervision of high risk , antepartum 05/12/2023 Multiparity 05/12/2023 Obesity in 11/26/2022 Positive GBS test 11/09/2022 LGSIL on Pap smear of cervix 05/26/2022 History of seizure 05/18/2022 Anxiety and depression 05/18/2022 Operations: No past surgical history on file. Past Medical History: Diagnosis Date Anxiety 2018 ongoing, not on medication Brain aneurysm at Depression 2018 ongoing, not on medication Seizures as a baby until age of 1 yr CURRENT HEALTH STATUS Medications: Current Facility-Administered Medications Medication Dose Route Frequency Last Rate Last Admin [id number] IV infusion 1,000 mL 1,000 mL IV Infusion TITRATE lactated ringers IV infusion 250 mL 250 mL IV Infusion ONCE lactated ringers IV infusion 250 mL 250 mL IV Infusion PRN - SEE INSTRUCTIONS lactated ringers IV infusion 250 mL 250 mL IV Infusion PRN - SEE INSTRUCTIONS lidocaine 1% (PF) (XYLOCAINE) injection 0.3 mL 0.3 mL Infiltration PRN - SEE INSTRUCTIONS lidocaine 1% (XYLOCAINE) 10 mg/mL (1 %) injection 50 mL 50 mL Infiltration PRN - SEE INSTRUCTIONS oxytocin (PITOCIN) 30 units in NS 500 mL IV infusion 2-40 archie-units/min IV Infusion TITRATE penicillin g potassium 5 Million Units in NaCl 0.9% (NS) 100 mL MINI-BAG 5 Million Units IV Piggyback ONCE Followed by penicillin GK 3 million units in NS 50 mL IV infusion (CNR) 3 Million Units IV Piggyback Q4H ABX sodium citrate-citric acid (BICITRA) 500-334 mg/5 mL solution 30 mL 30 mL Oral PRE-PROCEDURE ONCE sodium citrate-citric acid (BICITRA) 500-334 mg/5 mL solution 30 mL 30 mL Oral PRE-PROCEDURE ONCE Allergies and drug reactions: Patient has no known allergies. HOME MEDICATIONS Medications Prior to Admission Medication Sig Dispense Refill Last Dose ascorbic acid, vitamin C, 500 mg tablet Take 1 tablet by mouth in the morning and 1 tablet at noon and 1 tablet in the evening. 90 tablet 2 ferrous sulfate 325 mg (65 mg iron) tablet Take 1 tablet by mouth in the morning and 1 tablet in the evening. 60 tablet 3 [id number] acid 29 mg iron- 1 mg per tablet Take 1 tablet by mouth in the morning. 90 tablet 3 Taking SOCIAL HISTORY Tobacco History: Social History Tobacco Use Smoking Status Never Smokeless Tobacco Never Drug History: Social History Substance and Sexual Activity Drug Use Never Alcohol History: Social History Substance and Sexual Activity Alcohol Use Not Currently FAMILY HISTORY Family History Problem Relation Age of Onset Depression Mother Arthritis Mother Other - see comments Mother Lupus No Significant Medical Problems Father REVIEW OF SYSTEMS General: negative Constitutional: negative Eyes: negative ENT/Mouth: negative Cardiovascular: negative Respiratory: negative Gastrointestinal:negative Genitourinary: negative Musculoskeletal: negative Skin/breast: negative Neurological: negative Psychiatric: negative Endocrine: negative Hemat/Lymph: negative Allergic/Immuno:none Placenta Accreta Screening Screening outcome: A positive screening outcome indicates a history of prior delivery or prior uterine surgery, AND the presence of either a placenta low lying/previa or ultrasound suspicion of PASD in the current . Negative screening. VITAL SIGNS BP: (127)/(71) Temp: [36.9 ?C (98.5 ?F)] Temp source: Axillary (12/19 1259) Pulse: [103-116] Resp: [17-20] SpO2: [98 %-100 %] Height: [154.9 cm (5' 0.98")] Weight: [116.1 kg (256 lb)-116.2 kg (256 lb 1.6 oz)] BMI (calculated): [48.4-48.41] PHYSICAL EXAMINATIONS Gen: alert and oriented, well appearing, no distress CV: RRR, normal S1/S2, no m/r/g Resp: normal work of breathing, lungs CTAB Abd: gravid, soft, NTTP Ext: no calf tenderness or edema : SVE @ 1515 REVIEW OF LABORATORY, PATHOLOGY, AND RADIOLOGY DATA Lab results: Type & Screen HIV Hep B Syphilis Chlamydia ABO & RH Date Value Ref Range Status 05/12/2023 O POSITIVE Final No results found for: "HIVMULTIPLEX" No components found for: "HBSHBSAG" Syphilis IgG/IgM Date Value Ref Range Status 10/27/2023 Non-reactive Non-reactive Final C. trachomatis Nucleic Acid Date Value Ref Range Status 12/02/2023 Negative Negative Final IAT Date Value Ref Range Status 05/12/2023 Negative Final Varicella Rubella Glucose Group B Strep CBC VZV IgG antibody Date Value Ref Range Status 05/12/2023 Positive Negative Final Rubella screen IgG Date Value Ref Range Status 05/12/2023 Positive Negative Final GLUC 1 HR Date Value Ref Range Status 09/27/2023 189 (H) 120 - 170 mg/dL Final No results found for: "CGBS" HGB Date Value Ref Range Status 12/02/2023 9.4 (L) 11.6 - 15.0 g/dL Final HCT Date Value Ref Range Status 12/02/2023 31.4 (L) 35.7 - 45.2 % Final PLT Date Value Ref Range Status 12/02/2023 234 166 - 358 10*3/?L Final Active Hospital Problems Diagnosis Date Noted 39 weeks gestation of 12/20/2023 Indication for care in labor or delivery-IOL 12/20/2023 Anemia of mother in , antepartum 12/07/2023 Multiparity 05/12/2023 Obesity in 11/26/2022 Positive GBS test 11/09/2022 Address intrapartum Resolved Hospital Problems No resolved problems to display. Present on Admission: Obesity in Positive GBS test Anemia of mother in , antepartum Multiparity 39 weeks gestation of Indication for care in labor or delivery-IOL ASSESSMENT AND PLAN Krystle Henry is a 23 year old at 39w0d by LMP wih 9 wk USG who presents for induction of labor. Induction of Labor - SVE: - Mode: Alfarata: Contractions (number / 10 minute): 2 - Plan: IOL with pitocin. Desires epidural for pain relief. Antepartum course reviewed - 1 h 155, 3 hr wnl x 2, sero neg, Ri, VZVi, O+/neg, GBS pos (urine), Pap NIL 05/12/23 - H/H, plt: 9.4 / 31.4, 234 on 12/02/23 - [facility] Fetus - Presentation on admission: vertex - anterior placenta - Rico 8-9# 3880 gm by MD scan - T Category I - Normal anatomy scan Informed consent discussed with the patient, including: condition, proposed care, treatments and services, alternative forms of treatment, and risks of no treatment. Details discussed around the procedures to be used, and the risks and hazards involved, potential benefits, and side effects of the patient s proposed care, treatment, and services; the likelihood of the patient achieving his or her goals; and any potential problems that might occur during recuperation. Reasonable alternative also discussed with the patient s proposed care, treatment, and services. The discussion encompasses risks, benefits, and side effects related to the alternative and risks related to not receiving the proposed care, treatment, and services. Dr. Vázquez was available for consultation. Chika Dillard-KERA Pink CNM Associated attestation - Nabila Vázquez MD - 12/20/2023 7:06 PM CDT I was immediately available for consultation with Chika Dillard CNM at the time of this encounter. Admitted for induction of labor to NILESH service. MD service will remain available as needed. Nabila Vázquez MD 12/20/2023 7:06 PM [facility] Faculty [facility] Procedure Notes Date/Time Note Provider Source 2023-12-20 19:07:54 Associated Order(s): Central Neuraxial Block Central Neuraxial Block Date/Time: 12/20/2023 6:52 PM Performed by: Carisa Bruno MD Authorized by: Vandana Espitia MD Patient Location: OB Reason for Block: OB request, Patient request and Labor analgesia Staff: Anesthesiologist: Vandana Espitia MD Resident/SERVICE OR WORK DISPATCHER CHIEF: Carisa Bruno MD Performed by: resident/SERVICE OR WORK DISPATCHER CHIEF Preanesthetic Checklist: patient identified, IV checked, risks and benefits explained, monitors and equipment checked, timeout performed, pre-op evaluation, site marked and anesthesia consent Procedure: Type of Neuraxial: Epidural Epidural Description: 1st attempt Sterility Prep cap, drape, gloves, hand hygiene and mask Sedation Level no sedation Patient Position: sitting Prep: Betadine and patient draped Monitoring: heart rate, continuous pulse ox, heart rate / toco and NIBP Location: lumbar (1-5) Lumbar: L3-L4 Approach: midline Technique: catheter and RAMIRO saline Guidance with: landmark technique} Epidural/Spinal Lilburn and/or Catheter: Epidural/Spinal Kit: Noelle Needle Type: Tuohy Needle Gauge: 17 G Needle Length: 3.5 in (8.89 cm) Needle Insertion Depth: 6.5 Catheter Type: multiport Catheter Size: 19 G Catheter at Skin Depth: 12 Number of Attempts: 1 Test Dose: lidocaine 1.5% with epinephrine 1-to-200,000 Dose: 3 cc Catheter Securement Method: surgical tape, Tegaderm, clear occlusive dressing and liquid medical adhesive Assessment: Sensory Level: below T10 Block Outcome: patient tolerated procedure well and a full evaluation is pending Procedure Assessment: patient tolerated procedure well with no complications Notes: Patient identified; pre-procedure verification. Patient prepped and draped in standard sterile fashion using betadine x 3 Subcutaneous infiltration with 1% Lidocaine RAMIRO at 6.5 cm; catheter secured at 12 cm with mastisol, tegaderm x2 and 3-inch clear tape. Aspiration test negative x 3 Test dose negative Patient tolerated procedure well with no immediate complications Epidural expectations; PCEA explained and fall precautions given. ANESTHESIOLOGY [facility] Notes Date/Time Note Provider Source 2024-01-18 08:11:10 3rd attempt to call patient, no answer, left vm, letter sent to pt. [facility] 2024-01-17 10:21:23 2nd attempt call patient, no answer, left vm. [facility] 2024-01-14 13:49:09 Attempted to call patient, no answer, left vm. [facility] 2024-01-14 12:43:48 Please notify the patient of UTI, meds have been sent to the pharmacy. Please advise the patient on good perineal hygiene, drinking plenty of water, and completing the entire course of treatment. ROD Nova 01/14/2024 12:45 PM [facility] 2023-12-22 15:11:04 Problem: Falls, Risk of Goal: Absence of falls 12/22/2023 1510 by Hollie Mishra, VELASQUEZ Outcome: Resolved 12/22/2023 1128 by Hollie Mishra RN Outcome: Progressing as expected Problem: Pain Goal: Control of pain at or below patient's documented comfort goal 12/22/2023 1510 by Hollie Mishra, VELASQUEZ Outcome: Resolved 12/22/2023 1128 by Hollie MishraVELASQUEZ Outcome: Progressing as expected Goal: Reduction in pain sensation 12/22/2023 1510 by Hollie Mishra RN Outcome: Resolved 12/22/2023 1128 by Hollie Mishra RN Outcome: Progressing as expected Problem: Discharge Planning - Goal: Adequate for discharge 12/22/2023 1510 by Hollie Mishra RN Outcome: Resolved 12/22/2023 1128 by Hollie Mishra RN Outcome: Progressing as expected Goal: Mood stable 12/22/2023 1510 by Hollie Mishra RN Outcome: Resolved 12/22/2023 1128 by Hollie Mishra RN Outcome: Progressing as expected Problem: Infection Risk Goal: Absence of infection 12/22/2023 1510 by Hollie Mishra RN Outcome: Resolved 12/22/2023 1128 by Hollie Mishra RN Outcome: Progressing as expected Hollie Moody RN [facility] 2023-12-22 12:49:00 This note was copied from a baby's chart. 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 Used N/A Gestational age 39 weeks 2 Parity 2 Living Children 2 Feeding plan Breast and Formula Attended class No Breastfeed previously Yes Duration 2 months Age at that time 22 years Used pump previously Yes Duration (weeks) 8 weeks Age at that time 22 years plans Undecided Breast Pump Has Breast Pump Electric Financial Class WIC;Medicaid Delivery method Breast changes during Enlarged;Tenderness;Darken ing of areola Risk factors None Drug History No Mental health history None Breast Surgery/ History None Oral Assessment Oral assessment Deferred Date of 12/21/23 Time of 0422 location Mother Baby Unit Is this a multiple ? No Breast Assessment Breast Assessment Initial Symmetry Symmetrical Size L (D-DD) Shape Rounded;Pendulous Other Soft Scars on breast: No Nipple & Areola Assessment Left Areola Pliable Right Areola Pliable Left Nipple Colostrum visible;Intact;Everted Right Nipple Colostrum visible;Intact;Everted Literature Resources Resources guide;[employer] channel Education 6 months exclusive , up to and beyond 1 year with complimentary foods;On-demand feeds at least 8 or more over 24 hours;Diaper counts/color;Infant hunger cues;Benefits of breastmilk;Hand expression;Risk of formula supplementation;Delay of pacifier/artificial nipples up to 4 weeks;Encouraged rooming-in;Benefits of skin to skin contact;Signs of an effective latch;Waking techniques;Infant stomach size;2nd day/growth spurt cluster feeds;Calming techniques;Position changes;Breaking seal;Lactogenesis;Benefits of breast massage and hand expression;Engorgement signs and treatment;Risks of mastitis and signs, seek medical attention immediately Handouts given Gambian Survey Analyst Observation Pumping No Assist with latch Position right side Cradle;Infant latched effectively;Suckled in coordinated bursts Interventions Taught hand expression Mother demonstrated teach back of Breast massage and hand expression;Positioning and latching infant at breast Follow up Mom will call staff;[facility] warmline Recommended Feeding Plan Recommended feeding plan On-demand , 8-12 times in 24 hours not to exceed 6 hours between feeds;Offer both breasts prior to formula supplementation;Frequent [id number] time with parents OTHER $ SERVICES Initial Mom is primarily formula feed. Mom says baby is fussy at the breast . Baby assisted to right breast in cradle position. Baby is latching well. Mom encouraged to breastfeed on demand Shi Pena RN,BSN,IBCLC Pager - [phone] Shi Pena RN [facility] 2023-12-22 11:28:51 Problem: Falls, Risk of Goal: Absence of falls Outcome: Progressing as expected Problem: Pain Goal: Control of pain at or below patient's documented comfort goal Outcome: Progressing as expected Goal: Reduction in pain sensation Outcome: Progressing as expected Problem: Discharge Planning - Goal: Adequate for discharge Outcome: Progressing as expected Goal: Mood stable Outcome: Progressing as expected Problem: Infection Risk Goal: Absence of infection Outcome: Progressing as expected [facility] 2023-12-22 05:13:57 Problem: Falls, Risk of Goal: Absence of falls Outcome: Progressing as expected Problem: Pain Goal: Control of pain at or below patient's documented comfort goal Outcome: Progressing as expected Goal: Reduction in pain sensation Outcome: Progressing as expected Problem: Discharge Planning - Goal: Adequate for discharge Outcome: Progressing as expected Goal: Mood stable Outcome: Progressing as expected Problem: Infection Risk Goal: Absence of infection Outcome: Progressing as expected [facility] 2023-12-21 15:00:00 Images from the original note were not included. This note was copied from a baby's chart. Assessment (most recent) Assessment - 12/21/23 1505 General Information Visit -- attempted Visit attempted. Nurse is at Shi Pena RN,BSN,IBCLC Pager - [phone] [facility] 2023-12-21 11:33:36 Problem: Falls, Risk of Goal: Absence of falls Outcome: Progressing as expected Problem: Pain Goal: Control of pain at or below patient's documented comfort goal Outcome: Progressing as expected Goal: Reduction in pain sensation Outcome: Progressing as expected Problem: Discharge Planning - Goal: Mood stable Outcome: Progressing as expected Problem: Infection Risk Goal: Absence of infection Outcome: Progressing as expected [facility] Harmony Hyde RN [facility] 2023-12-21 07:22:58 Patient: Krystle Henry Procedure Summary Date: 12/20/23 Room / Location: Anesthesia Start: 1839 Anesthesia Stop: 12/21/2330 Procedure: CENTRAL NEURAXIAL BLOCK Diagnosis: Scheduled Providers: Responsible Provider: Tammy Kaplan MD Anesthesia Type: Epidural ASA Status: 2 Anesthesia Type: No value filed. Last vitals BP 108/62 (12/21/23 07) Temp 36.8 ?C (98.2 ?F) (12/21/23 07) Pulse 108 (12/21/23699) Resp 18 (12/21/23 07) SpO2 98 % (12/21/23699) There were no known notable events for this encounter. Anesthesia Post Evaluation Patient location during evaluation: bedside Patient participation: complete - patient participated Level of consciousness: awake and alert Pain score: 1 Pain management: satisfactory to patient Airway patency: patent Cardiovascular status: acceptable and blood pressure returned to baseline Respiratory status: acceptable Hydration status: acceptable AN-ANESTHESIOLOGY ANESTHESIOLOGIST [facility] 2023-12-21 04:22:00 DELIVERY BY SPONTANEOUS VAGINAL DELIVERY Delivery Date: 12/21/2023 Delivery Time: 4:22 AM Delivery Summary The patient was admitted to the Labor & Delivery unit for augmentation of labor at 39 weeks due to irregular uterine contractions. Delivery Physician: Cecily Allen CNM Student: Damaris Guan RN, [facility] Resident: Soham Plascencia MD Intrapartum Anesthesia/Analgesia: Epidural Mode of Delivery: Delivery of rowan fetus with cephalic presentation Fetus Spontaneous vaginal delivery of head with cephalic position, occipital posterior. As the head crowned and distended the perineum, no episiotomy was performed. The other hand was used to exert pressure on the occiput to control the delivery of the head. The head was allowed to rotate externally to achieve natural body posture. Examination of neck revealed nuchal cord, which was Umbilical cord not reducted - body delivered through umbilical cord. The shoulder was delivered by gentle downward traction applied to head and downward traction for the delivery of anterior shoulder. This was followed by upward traction with delivery of posterior shoulder and body. After the delivery of infant, bulb suction was performed from ororpharynx and nostril with removal of clear amniotic fluid. A normal, male was delivered. The umbilical cord was double clamped, cut and the was handed off the field to the circulating nurse Placenta Placenta was delivered spontaneously while the abdominal hand lifted the uterus cephalad and other hand keeping the umbilical cord slightly taut. Laceration Laceration Repair: 2nd Degree - Second degree episiotomy was repaired. Suture was used with continuous locking fashion to close the vaginal mucosa and submucosa. The hymenal ring is reapproximated and tied with the same suture. The fascia and muscle of perineum was reapproximated with continuous suturing from forchett toward inferior edge. Continuous subcutaneous stitch was used to reapproximate the perineal skin with the same suture. . Fourth Stage Fourth stage of labor was managed by uterine massage with abdominal hand and infusion 30 units of pitocin mixed with intravenous fluid. EBL: 450 Complications: none Weight: 3700 g 1 Minute 5 Minute 10 Minute Totals: 8 9 Cecily Allen CNM Prescriptive Authority Physician: Gino Ramos MD T [facility] 2023-12-20 19:44:31 Problem: Intrapartum process (including labor pain) Goal: Absence of or reduction of complications of labor Outcome: Progressing as expected Goal: Able to cope with pain Outcome: Progressing as expected Goal: Adequate to move to next level of care Outcome: Progressing as expected Goal: Reduction in pain sensation Outcome: Progressing as expected Problem: Falls, Risk of Goal: Absence of falls Outcome: Progressing as expected T Marlene Gaytan RN [facility] 2023-12-20 19:43:06 Name/ MRN / Age / Gender: Krystle Henry, [id number] 23 year old female BMI: Estimated body mass index is 48.4 kg/m? as calculated from the following: Height as of this encounter: 1.549 m (5' 0.98"). Weight as of this encounter: 116.1 kg (256 lb). Allergies: Patient has no known allergies. Last Vitals: BP Readings from Last 1 Encounters: 12/20/23 114/68 Pulse Readings from Last 1 Encounters: 12/20/23 107 SpO2 Readings from Last 1 Encounters: 12/20/23 98% Date of Surgery: 12/20/2023 Surgeon: * No surgeons listed * Procedure: CENTRAL NEURAXIAL BLOCK OR Location: [place] [facility] OUT OF OR - OR LOCATION Anesthesia Preop Eval (physical exam) Anesthesia Preop: Chart Review and [id number] Communication: Krystle Henry is a 23 year old female requesting RACHEL. Per chart review medical hx inclusive of: Past Medical History: 2018: Anxiety Comment: ongoing, not on medication No date: Brain aneurysm Comment: at 2018: Depression Comment: ongoing, not on medication No date: Seizures Comment: as a baby until age of 1 yr NPO Status Verified Anesthesia History Anesthesia History Negative Comments: Prior epidural with RAMIRO at 6.5, worked well per patient Previous Anesthetics/Airways Cardiovascular Negative Cardiac ROS Comments: BP Readings from Last 4 Encounters: 12/20/23 : 114/68 12/15/23 : 123/82 12/08/23 : 119/82 12/02/23 : 117/71 METS: 4 METS Comments: Able to walk stairs without cp/sob (-) Chest pain with 1-2 flights of stairs (-) Hypertension Pulmonary Negative Pulmonary ROS Comments: Tobacco Use: Low Risk (12/15/2023) Patient History Smoking Tobacco Use: Never Smokeless Tobacco Use: Never Passive Exposure: Not on file (-) Sleep apnea (-) COPD (-) Asthma (-) Shortness of breath Neuro/Musculoskeletal Negative Neuro/Musculosketal ROS (+) Obesity and morbid obesity GI/Hepatic (+) GERD and controlled with meds Hematology Comments: HGB (g/dL) Date Value 12/20/2023 9.5 (L) 12/20/23 1537 PLT 250 (+) Anemia (-) Coagulopathy Renal Negative Renal ROS Comments: No results found for: "CREAT" No results found for: "K" (-) Renal disease Skin Negative Skin ROS (+) Current IV access Endo/Other Negative Endo/Other ROS Comments: No results found for: "[id number]" (-) Diabetes Mellitus (-) Hyperthyroidism (-) Hypothyroidism 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 Induction of Labor - SVE: - Mode: Alfarata: Contractions (number / 10 minute): 2 - Plan: IOL with pitocin. Desires epidural for pain relief. Antepartum course reviewed - 1 h 155, 3 hr wnl x 2, sero neg, Ri, VZVi, O+/neg, GBS pos (urine), Pap NIL 05/12/23 - H/H, plt: 9.4 / 31.4, 234 on 12/02/23 - [facility] Fetus - Presentation on admission: vertex - anterior placenta - Rico 8-9# 3880 gm by scan - FHT Category I - Normal anatomy scan Pediatric Pediatric N/A N/A Preoperative Medication Instructions Continue taking all prescribed medications except: NAVID inhibitors, ARBs, diuretics, all oral diabetes medications Anticoagulant Therapy: Defer to surgeons Insulin: Take 1/2 dose the night prior to surgery. Hold on DOS. Phentermine: Alert [facility] anesthesiologist SGLT2 Inhibitors: "gliflozins" to be held for 3 days prior to elective surgeries GLP1 Agonosit: stop 7 days prior to surgery MAC Cases: Continue taking NAVID inhibitors and ARBs ASA Classification ASA: 2 Labs: Chemistry - CBC 12/20/2023 - - - - 15.69 (H) 9.5 (L) 250 - - - 30.6 (L) eGFR: - Date: - ANC: 12.91 (H) Date: 12/20/2023 LFTs - Coags AST: - AP: - Prot: - Ca: - PT: - Date: - ALT: - T Obed: - Alb: - PTT: - Date: - PO4: - Date: - INR: - Date: - Cardiac Endocrine & other pBNP: - Date: - A1C: - Date: - Trop I: - Date: - POCT A1C: - Date: - CK: - Date: - TSH: - Date: - CKMB: - Date: - FT4: - Date: - LDL: - Date: - Lact: - Date: - Procal: - Date: - Respiratory -|-|-|-|- D-dimer: - ABG Date: - Date: - Miscellaneous Type and Screen: O POSITIVE Antibody: Negative Date: 12/20/2023 POCT : Positive Date: 05/18/2022 Current Medications: No outpatient medications have been marked as taking for the 12/20/23 encounter (Hospital Encounter). Previous Surgeries: No past surgical history on file. Anesthesia Physical Exam General alert and oriented x 3 Neuro/Psych neurological Dental no notable dental hx Abdominal GI exam normal (+) obesity and gravid Airway Mallampati score:III TM distance:> 5 cm NECK: short Neck ROM: full Mouth opening:normal Extremity Normal extremity Pulmonary pulmonary exam normal Other Cardiovascular cardiovascular exam normal Anesthesia Plan ASA Status: 2 Plan discussed during pre-op evaluation: Epidural, Spinal and General Anesthetic plan on DOS: Epidural Anesthesia plan discussed with: patient or sales and service representative Post-Operative Analgesia: routine analgesia & antiemetics Recovery Plan: LDR Additional comments: AN-ANESTHESIOLOGY ANESTHESIOLOGIST [facility] 2023-12-20 19:29:47 Intrapartum Progress Note 12/20/2023 7:29 PM Assumed care of patient Subjective: Patient has no complaints Objective: Vitals last 24 hours: Temp: [36.9 ?C (98.5 ?F)] 36.9 ?C (98.5 ?F) Pulse: [95-126] 102 Resp: [17-20] 18 BP: (92-127)/(47-88) 101/60 Intake/Output : No intake/output data recorded. I/O last 3 completed shifts: In: 4.2 [I.V.:4.2] Out: - Assessment Active movement: Yes Mode: EFM Baseline FHR (bpm): 125 Variability: Moderate Pattern: Accelerations Decel Frequency: None FHR Category: I Uterine Activity: Mode: [place] Contractions (number / 10 minute): 4-5 Contraction duration (seconds): 80 Contraction quality: Mild Resting tone: Soft Membrane Status Membrane status: Intact Cervical Exam 50 % / -3 Assessment/Plan: Krystle Henry is a 23 year old at 39w0d OB Assessment: CNM IOL OB Plan: pit, epidural Additional Comments/Detail: Ripening Agent: Oxytocin Cecily Allen CNM [facility] 2023-12-20 13:43:37 Problem: Intrapartum process (including labor pain) Goal: Absence of or reduction of complications of labor Outcome: Progressing as expected Goal: Able to cope with pain Outcome: Progressing as expected Goal: Adequate to move to next level of care Outcome: Progressing as expected Goal: Reduction in pain sensation Outcome: Progressing as expected Maria Ines Cazares RN [facility] 2023-12-09 10:40:44 Attempt#3. Called, no answer. Left VM. Letter mailed today.DARIN THORNE RN 12/09/2023 10:41 AM [facility] 2023-12-08 13:02:32 2nd attempt to call pt, no answer. Left vm Hilary Caicedo LVN Hilary Caicedo LVN [facility] 2023-12-08 08:14:48 1st attempt to call pt, no answer. Left VM. Hilary Caicedo LVN [facility] 2023-12-07 16:40:47 Please notify the patient she is anemic iron and vitamin c have been sent to her pharmacy on file. She should continue taking her pnv. ROD Nova 12/07/2023 4:40 PM [facility] 2023-09-28 09:15:45 Patient informed of results and new orders, verbalized understanding. Natalya Lowe LVN [facility] 2023-09-28 08:47:29 Please notify the patient she is anemic iron and vitamin c have been sent to her pharmacy on file. She should continue taking her pnv. ROD Nova 09/28/2023 8:47 AM T [facility] 2023-05-13 15:45:35 Pt notified of abnormal 1 hr gtt. Pt instructions given on 3 hr gtt including fasting and length of test. Pt scheduled on 05/18/2023 at 0800. Pt verbalized understanding. DARIN THORNE RN 05/13/2023 3:46 PM T [facility] 2023-05-13 15:09:31 Please notify the patient she failed her 1 hr gtt. She needs to come in for a fasting 3hr gtt ROD Nova 05/13/2023 3:09 PM T [facility] 2022-11-09 16:37:15 Formatting of this n ote might be different from the original. Pt called and notified by provider she reports she is currently taking iron gummies Please notify the patient she is anemic iron and vitamin c have been sent to her pharmacy on file. She should continue taking her pnv. ROD Nova 11/09/2022 4:37 PM [facility] 2022-11-05 14:38:57 Formatting of this n ote might be different from the original. Notified patient of new induction at 39 weeks due to USG and baby's measurements. Pt verbalized understanding. DARIN THORNE RN 11/05/2022 2:40 PM Darin Thorne RN [facility] 2022-11-05 14:31:42 Formatting of this n ote might be different from the original. Please notify the patient her IOL date will be switched to 39 weeks, per her last usg, baby Is measuring larger ROD Nova 11/05/2022 2:32 PM [facility]
--- NOTE | 2024-06-14 09:37 | EDPHYS ---
Physician Documentation [facility] Name: Jael Henry Age: 23 yrs Sex: Female : 2000 Arrival Date: 06/14/2024 Time: 09:15 Bed 12 Private MD: ED Physician Lori Deutsch HPI: 06/14 09:34 This 23 yrs old Female presents to ER via Ambulatory with complaints of Ear Pain. sp3 09:34 23-year-old female with no significant past medical history presents with right ear sp3 pain over the last 3 to 4 days coupled with "ear clogging up". She denies any fever, headache, neck pain, sore throat, dental pain, known sick contacts, travel history, or any other signs or symptoms on ROS at this time.. 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 - Infectious Disease History:: Denies. - Social history:: Smoking status: Patient denies any tobacco usage or history of. ROS: 09:34 Constitutional: Negative for fever, chills, and weight loss, Eyes: Negative for injury, sp3 pain, redness, and discharge, Neck: Negative for injury, pain, and swelling, Cardiovascular: Negative for chest pain, palpitations, and edema, Respiratory: Negative for shortness of breath, cough, wheezing, and pleuritic chest pain, Abdomen/GI: Negative for abdominal pain, nausea, vomiting, diarrhea, and constipation, Back: Negative for injury and pain, MS/Extremity: Negative for injury and deformity, Skin: Negative for injury, rash, and discoloration, Neuro: Negative for headache, weakness, numbness, tingling, and seizure, Psych: Negative for depression, anxiety, suicide ideation, homicidal ideation, and hallucinations, Allergy/Immunology: Negative for hives, rash, and allergies, Endocrine: Negative for neck swelling, polydipsia, polyuria, polyphagia, and marked weight changes, Hematologic/Lymphatic: Negative for swollen nodes, abnormal bleeding, and unusual bruising, 09:34 All other systems are negative, Exam: 09:34 Constitutional: This is a well developed, well nourished patient who is awake, alert, sp3 and in no acute distress. Head/Face: Normocephalic, atraumatic. Eyes: Pupils equal round and reactive to light, extra-ocular motions intact. Lids and lashes normal. Conjunctiva and sclera are non-icteric and not injected. Cornea within normal limits. Periorbital areas with no swelling, redness, or edema. Neck: Trachea midline, no thyromegaly or masses palpated, and no cervical lymphadenopathy. Supple, full range of motion without nuchal rigidity, or vertebral point tenderness. No Meningismus. Chest/axilla: Normal chest wall appearance and motion. Nontender with no deformity. No lesions are appreciated. Cardiovascular: Regular rate and rhythm with a normal S1 and S2. No gallops, murmurs, or rubs. Normal PMI, no JVD. No pulse deficits. Respiratory: Lungs have equal breath sounds bilaterally, clear to auscultation and percussion. No rales, rhonchi or wheezes noted. No increased work of breathing, no retractions or nasal flaring. Abdomen/GI: Soft, non-tender, with normal bowel sounds. No distension or tympany. No guarding or rebound. No evidence of tenderness throughout. Back: No spinal tenderness. No costovertebral tenderness. Full range of motion. Skin: Warm, dry with normal turgor. Normal color with no rashes, no lesions, and no evidence of cellulitis. MS/ Extremity: Pulses equal, no cyanosis. Neurovascular intact. Full, normal range of motion. Neuro: Awake and alert, GCS 15, oriented to person, place, time, and situation. Cranial nerves II-XII grossly intact. Motor strength 5/5 in all extremities. Sensory grossly intact. Cerebellar exam normal. Normal gait. Psych: Awake, alert, with orientation to person, place and time. Behavior, mood, and affect are within normal limits. 09:34 ENT: Right TM erythema noted. Vital signs are normal.. Vital Signs: 09:26 BP 131 / 80; Pulse 89; Resp 17; Temp 97.8; Pulse Ox 100% ; Weight 99.79 kg; Height 5 ll1 ft. 1 in. ; Pain 7/10; 09:26 Body Mass Index 41.57 (99.79 kg, 154.94 cm) ll1 09:26 Pain Scale: Adult ll1 MDM: 09:28 Medical Screening Exam initiated sp3 09:35 Data reviewed: vital signs, nurses notes. ED course: Differential diagnosis includes sp3 viral otitis media versus bacterial otitis media versus dental origin. Given erythema, probable otitis media. I have advised her on antibiotic usage and the probability that this is viral. I have also advised her to take ibuprofen and Sudafed to help with drainage. Follow-up with PCP as needed.. Administered Medications: No medications were administered Disposition Summary: 06/14/24 09:36 Discharge Ordered Notes: Location: Home sp3 Condition: Stable sp3 Diagnosis - Otitis media, otalgia right side sp3 Followup: sp3 - With: Private Physician - When: Upon discharge from the Emergency Department - Reason: Continuance of care Discharge Instructions: - Discharge Summary Sheet sp3 - Otitis Media, Adult sp3 Forms: - Medication Reconciliation Form sp3 - Antibiotic Education sp3 - Prescription Opioid Use sp3 - Patient Portal Instructions sp3 - Leadership Thank You Letter sp3 Prescriptions: - Amoxicillin 500 mg Oral capsule - take 1 capsule ORAL route every 8 hours for 7 days; 21 tablet; Refills: 0, sp3 Product Selection Permitted Signatures: Danielle Hogan RN RN ll1 Lori Deutsch MD MD sp3
--- NOTE | 2024-06-14 09:37 | ER ---
Nurse's Notes [facility] [place] [address] Name: Jael Henry Age: 23 yrs Sex: Female : 2000 Arrival Date: 06/14/2024 Time: 09:15 Bed 12 Private MD: Diagnosis: Otitis media, otalgia right side Presentation: 06/14 09:26 Chief complaint: Patient states: R ear pain for 2 days. Coronavirus screen: Client ll1 denies travel out of the [place] in the last 14 days. At this time, the client does not indicate any symptoms associated with coronavirus-19. Ebola Screen: Patient denies travel to an Ebola-affected area in the 21 days before illness onset. Initial Sepsis Screen: Does the patient meet any 2 criteria? No. Patient's initial sepsis screen is negative. Does the patient have a suspected source of infection? No. Patient's initial sepsis screen is negative. Risk Assessment: Do you want to hurt yourself or someone else? Patient reports no desire to harm self or others. Onset of symptoms was June 13, 2024. 09:26 Method Of Arrival: Ambulatory ll1 09:26 Acuity: SARAY 4 ll1 Triage Assessment: 09:26 General: Appears uncomfortable, Behavior is calm, cooperative, appropriate for age. ll1 Pain: Complains of pain in right ear Quality of pain is described as aching. EENT: Reports pain in right ear. 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 - Infectious Disease History:: Denies. - Social history:: Smoking status: Patient denies any tobacco usage or history of. Screenin:43 [facility] ED Fall Risk Assessment (Adult) History of falling in the last 3 months, ll1 including since admission No falls in past 3 months (0 pts) Confusion or Disorientation No (0 pts) Intoxicated or Sedated No (0 pts) Impaired Gait No (0 pts) Mobility Assist Device Used No (0 pt) Altered Elimination No (0 pt) Score/Fall Risk Level 0 - 2 = Low Risk Maintained a safe environment, Hourly rounding (assess needs \T\ fall precautionary measures) done. Abuse screen: Denies threats or abuse. Nutritional screening: No deficits noted. Tuberculosis screening: No symptoms or risk factors identified. Assessment: 09:43 Reassessment: No changes from previously documented assessment. Patient and/or family ll1 updated on plan of care and expected duration. Pain level reassessed. Patient is alert, oriented x 3, equal unlabored respirations, skin warm/dry/pink. Vital Signs: 09:26 BP 131 / 80; Pulse 89; Resp 17; Temp 97.8; Pulse Ox 100% ; Weight 99.79 kg; Height 5 ll1 ft. 1 in. ; Pain 7/10; 09:26 Body Mass Index 41.57 (99.79 kg, 154.94 cm) ll1 09:26 Pain Scale: Adult ll1 ED Course: 09:20 Patient arrived in ED. gl 09:20 Lori Deutsch MD is Attending Physician. sp3 09:26 Triage completed. ll1 09:27 Arm band placed on Patient placed in an exam room, on a stretcher. ll1 09:44 No provider procedures requiring assistance completed. Patient did not have IV access ll1 during this emergency room visit. 09:45 Patient has correct armband on for positive identification. Provided Education on: ll1 finish all prescribed antibiotics. Administered Medications: No medications were administered Medication: 09:45 VIS not applicable for this client. ll1 Outcome: 09:36 Discharge ordered by . sp3 09:45 Discharged to home ambulatory, ll1 09:45 Condition: stable 09:45 Discharge instructions given to patient, Instructed on discharge instructions, follow up and referral plans. medication usage, Demonstrated understanding of instructions, follow-up care, medications, Prescriptions given X 1, 09:46 Patient left the ED. ll1 Signatures: Danielle Hogan RN RN ll1 Lori Deutsch MD MD sp3 Raquel Lucio, Reg Reg gl
[2024-06-14 09:57] VITALS: BP 131/80; TEMP 97.8; O2SAT 100
== END 2024-06-14 09:46 | disposition home or self-care (01) ==
LOC: ER 09:15
DX: H66.91 Otitis media, unspecified, right ear (principal)